=== PATIENT | female | born 1960 | race Caucasian/White ===

== ENCOUNTER 2019-11-09 14:04 | Outpatient (CLI) | payer OTHER, SELFPAY ==
--- NOTE | ~2019-11-09 | MM_ITS ---
EXAMINATION: MM screening aracely BI w josé HISTORY: Screening mammogram TECHNIQUE: Craniocaudal and mediolateral oblique 3-D tomosynthesis images were obtained and synthetic 2-D images were generated. CAD analysis was submitted and interpreted. COMPARISON: 08/09/2017, 08/16/2015, 09/27/2013 bilateral digital screening mammogram examinations BREAST PARENCHYMAL COMPOSITION: There are scattered areas of fibroglandular density. FINDINGS: Possible new 3 mm or smaller masses in the anterior lower outer quadrant of the left breast . Diagnostic left mammogram is recommended, with ultrasound if required. There is otherwise no evidence of suspicious mass, calcification, or architectural distortion to sugg est malignancy in either breast. There has been no suspicious interval change. IMPRESSION: 1. Possible new mass or masses in the anterior aspect of the lower outer left breast. 2. Diagnostic left mammogram is recommended, with ultrasound if required BI-RADS Category 0: Incomplete; need additional imaging evaluation Reviewed, dictated and finalized at location A. IMPRESSION: 1. Possible new mass or masses in the anterior aspect of the lower outer left b reast. 2. Diagnostic left mammogram is recommended, with ultrasound if required BI-RADS Category 0: Incomplete; need additional imaging evaluation
== END 2019-11-09 14:05 | disposition home or self-care (01) ==
PROVIDERS: PCP Internal Medicine; Visit Provider Obstetrics & Gynecology
DX: Z12.31 Encounter for screening mammogram for malignant neoplasm of breast (principal); R92.8 Other abnormal and inconclusive findings on diagnostic imaging of breast
CPT/HCPCS: 77063; 77067

== ENCOUNTER 2019-11-20 15:12 | Outpatient (CLI) | payer OTHER, SELFPAY ==
[2019-11-20 17:10] LABS: Basophils Absolute Auto 0.1 K/mm3 (0.0-0.1); Basophils Percent Auto 1.3 % (0.2-1.2); Eosinophils Absolute Auto 0.1 K/mm3 (0-0.3); Eosinophils Percent Auto 1.7 % (0-4.4); Hematocrit 41.2 % (37.0-47.0); Hemoglobin 13.4 g/dL (12.0-15.0); Immature Granulocyte Absolute 0.02 K/mm3 (0.00-0.031); Immature Granulocyte Percent A 0.3 % (0-0.5); Lymphocytes Absolute Auto 2.06 K/mm3 (0.9-3.2); Lymphocytes Percent Auto 28.9 % (18.3-44.2); Mean Corpuscular HGB Conc 32.5 g/dl (32-36); Mean Corpuscular Hemoglobin 30.3 pg (26-34); Mean Corpuscular Volume 93.2 fl (80-100); Mean Platelet Volume 11.2 fl (7.4-10.4); Monocytes Absolute Auto 0.5 K/mm3 (0.1-0.6); Monocytes Percent Auto 7.4 % (2.6-8.5); Neutrophils Absolute Auto 4.3 K/mm3 (1.3-6.7); Neutrophils Percent Auto 60.4 % (45.5-73.1); Platelet Count Result 246 k/mm3 (150-375); Red Blood Count 4.42 M/mm3 (4.2-5.4); Red Cell Distribution Width 12.4 % (11.5-14.5); White Blood Count 7.1 K/mm3 (4.5-10.0)
[2019-11-20 17:16] LABS: Alanine Aminotransferase 14 U/L (4-35); Albumin Level 4.4 g/dL (3.5-5.1); Alkaline Phosphatase 64 U/L (38-126); Anion Gap 7 mmol/L (8-16); Aspartate Amino Transferase 27 U/L (14-36); Bilirubin,Total 0.4 mg/dL (0.2-1.3); Blood Urea Nitrogen 15 mg/dL (7-17); Calcium 9.5 mg/dL (8.4-10.2); Carbon Dioxide 27 mmol/L (22-30); Chloride 103 mmol/L (98-107); Cholesterol 216 mg/dL (0-200); Estimated Glomerular Filt Rate > 60; Glucose 93 mg/dL (65-105); HDL Direct 67 mg/dL; Sodium 137 mmol/L (137-145); Triglycerides 127 mg/dL (<150)
[2019-11-20 17:27] LABS: LDL Cholesterol Direct 104 mg/dL
[2019-11-20 17:51] LABS: Hemoglobin A1C 5.1 % (<5.7)
== END 2019-11-20 15:13 | disposition home or self-care (01) ==
PROVIDERS: PCP Internal Medicine; Visit Provider Internal Medicine
DX: Z00.00 Encounter for general adult medical examination without abnormal findings (principal); D50.9 Iron deficiency anemia, unspecified; E78.5 Hyperlipidemia, unspecified
CPT/HCPCS: 36415; 80053; 80061; 83036; 84443; 85025

== ENCOUNTER 2019-11-24 00:16 | Outpatient (CLI) | payer OTHER, SELFPAY ==
[2019-11-24 18:35] LABS: SARS-CoV-2 RNA PCR Negative
== END 2019-11-24 00:17 | disposition home or self-care (01) ==
LOC: ANHCOVIDDT 00:16
PROVIDERS: PCP Internal Medicine; Visit Provider Internal Medicine Gastroenterology
DX: Z01.812 Encounter for preprocedural laboratory examination (principal); Z20.828 Contact with and (suspected) exposure to other viral communicable diseases
CPT/HCPCS: 87635; C9803; U0003

== ENCOUNTER 2019-11-27 01:27 | Day surgery (SDC) | payer OTHER, SELFPAY ==
[2019-11-16 14:01] VITALS: BMI 25.1
[2019-11-27 06:27] VITALS: BP 105/62; PULSE 63; RESP 16; TEMP 36.6; O2SAT 99; BMI 24.8
[2019-11-27] MEDS: LACTATED RINGERS 1,000 ML 150 ML IV CONT (06:34)
--- NOTE | 2019-11-27 06:37 | WPDANESEPPF ---
Anes - Initial Pre Proc Eval Procedure: Operation Date: 11/27/19 07:30 Proposed Procedures p Screening Colonoscopy - Kaden Ramon MD Date/Time: 11/27/19 06:37 Surgeon: Kaden Ramon MD Pre Op Diagnosis: Neoplasm Screening, Hx of Colon CA Patient Data Age: 58 Gender: F Height: 1.7 m Weight: 72 kg Last Vital Signs Temp 36.6 C 11/27/19 06:27 Pulse 63 11/27/19 06:27 Resp 16 11/27/19 06:27 BP 105/62 11/27/19 06:27 Pulse Ox 99 11/27/19 06:27 Allergies Allergy/AdvReac Type Severity Reaction Status Date / Time No Known Allergies Allergy Verified 11/27/19 06:26 Home Medications Medication Instructions Recorded Confirmed Type No Home Medications 11/16/19 11/16/19 History Patient hx anesthesia problems: none Family hx anesthesia problems: none PMFSH Past Medical History Medical History (Updated 11/27/19 @ 06:38 by David Benoit MD) Hx of colon cancer, stage I Mixed stress and urge urinary incontinence Pure hypercholesterolemia Family History Family History (Updated 11/08/15 @ 23:19 by DOCTOR UNKNOWN) Other Family history of diabetes mellitus in first degree relative Family history of malignant neoplasm of brain Family history of type 1 diabetes mellitus Hypertension Social History Social History Smoking status: Never smoker Alcohol intake: current Anes - Eval Final PreProcedure Day of Procedure 11/27/19 06:37 Patient weight: normal Heart: regular rate and rhythm Lungs: clear to auscultation and normal air movement Airway: Mallampati scale class II Neurological: alert and oriented Last oral intake: >/= 8 hours ASA classification: III Emergent: no Anesthetic plan: proceed Anesthesia type and monitoring: general GIVS Informed Consent: The patient's anesthetic plan and its attendant risks and benefits were discussed with the patient/family/POA. Questions were solicited and answers provided to the satisfaction of the patient/family/POA.
--- NOTE | 2019-11-27 07:55 | WPDGICN ---
Assessment and Plan Assessment and plan (1) Hx of colon cancer, stage I: Code(s): Z85.038 - Personal history of other malignant neoplasm of large intestine Status: Acute Assessment and Plan: Because of patient's prior history of colon cancer would recommend follow-up colonoscopy in 3-5 year intervals in the future. High-fiber diet is suggested. Family members are encouraged to seek evaluation as well. GI Consult Note Consult date/time: 11/27/19 07:55 HPI: Alma Delia Jain is a 58 year old female seen in evaluation at the request of Dr Eric Fraga.Patient has a history of colon cancer resected in felt to be cured. She presents today for follow-up examination. Her last colonoscopy was 3 years ago. Patient states her current weight appetite bowel movements are normal. She denies abdominal pain. She has had no blood in her stools. Family history is noncontributory. Review of Systems Review of Systems: All systems reviewed & are unremarkable except as noted in HPI and below PMFSH Past Medical History Medical History Hx of colon cancer, stage I Mixed stress and urge urinary incontinence Pure hypercholesterolemia Family History Family History Other Family history of diabetes mellitus in first degree relative Family history of malignant neoplasm of brain Family history of type 1 diabetes mellitus Hypertension Social History Social History Smoking status: Never smoker Alcohol intake: current Meds Home Medications and Allergies Home Medications Medication Instructions Recorded Confirmed Type No Home Medications 11/16/19 11/16/19 History Allergies Allergy/AdvReac Type Severity Reaction Status Date / Time No Known Allergies Allergy Verified 11/27/19 06:26 Vital Signs Vital Signs - 24 hr 11/27/19 06:27 Temperature 97.9 F Pulse Rate 63 Respiratory Rate 16 Blood Pressure 105/62 Pulse Oximetry 99 Exam Narrative: Exam Narrative: Physical exam reveals patient to be alert. Vital signs stable. HEENT exam unremarkable. Lungs are clear to auscultation and percussion. Heart is without murmur or extra sounds. Abdominal exam bowel sounds present soft nontender with no hepatosplenomegaly. Digital external rectal exam normal.
[2019-11-27 08:01] VITALS: BP 95/56; PULSE 67; RESP 24; O2SAT 98
[2019-11-27 08:11] VITALS: BP 94/43; PULSE 69; RESP 24; O2SAT 100
[2019-11-27 08:21] VITALS: BP 105/66; PULSE 54; RESP 14; O2SAT 100
== END 2019-11-27 08:45 | disposition home or self-care (01) ==
PROVIDERS: PCP Internal Medicine; Visit Provider Internal Medicine Gastroenterology
PROC: 0DJD8ZZ Inspection of Lower Intestinal Tract, Via Natural or Artificial Opening Endoscopic (ICD-10-PCS; CPT 45378; principal; 2019-11-27 07:30)
DX: Z08 Encounter for follow-up examination after completed treatment for malignant neoplasm (principal); Z85.038 Personal history of other malignant neoplasm of large intestine; Z98.0 Intestinal bypass and anastomosis status; E78.5 Hyperlipidemia, unspecified; I34.1 Nonrheumatic mitral (valve) prolapse
CPT/HCPCS: 45378; J2704; J7120

== ENCOUNTER 2019-12-04 10:24 | Outpatient (CLI) | payer OTHER, SELFPAY ==
--- NOTE | ~2019-12-04 | MMUS_ITS ---
EXAMINATION: MM diagnostic mammo unilat LT, US breast LT limited HISTORY: Possible left breast mass on screening mammogram TECHNIQUE: Additional 3-D tomosynthesis images of the left breast were performed and synthetic 2-D im ages were generated. CAD analysis was submitted and interpreted. High resolution limited left breast ultrasound was performed. COMPARISON: 10/13/2019, 08/09/2017, 08/16/2015 FINDINGS: MAMMOGRAPHIC FINDINGS: There is a return to baseline fibroglandular appearance in the left breast in the area of the questio nable breast mass on screening mammogram. No suspicious calcification or architectural distortion are identified. ULTRASOUND: There is no evidence of focal abnormal solid or cystic lesion in the vicinity of the mammographic fin ding in question. IMPRESSION: 1. No mammographic or sonographic evidence of malignancy. 2. Recommend routine screening mammography in one year. BI-RADS Category 1: Negative Reviewed, dictated and finalized at location A. IMPRESSION: 1. No mammographic or sonographic evidence of malignancy. 2. Recommend routine screening mammography in one year. BI-RADS Category 1: Negative
== END 2019-12-04 10:25 | disposition home or self-care (01) ==
LOC: ANHIMG 10:27
PROVIDERS: PCP Internal Medicine; Visit Provider Obstetrics & Gynecology
DX: R92.8 Other abnormal and inconclusive findings on diagnostic imaging of breast (principal)
CPT/HCPCS: 76642; 77065

== ENCOUNTER 2021-03-04 09:25 | Outpatient (CLI) | payer OTHER, SELFPAY ==
[2021-03-04 09:50] LABS: Basophils Absolute Auto 0.1 K/mm3 (0.0-0.1); Basophils Percent Auto 1.7 % (0.2-1.2); Eosinophils Absolute Auto 0.1 K/mm3 (0-0.3); Eosinophils Percent Auto 1.2 % (0-4.4); Hematocrit 43.7 % (37.0-47.0); Hemoglobin 14.4 g/dL (12.0-15.0); Immature Granulocyte Absolute 0.02 K/mm3 (0.00-0.031); Immature Granulocyte Percent A 0.3 % (0-0.5); Mean Corpuscular Hemoglobin 30.7 pg (26-34); Mean Corpuscular Volume 93.2 fl (80-100); Mean Platelet Volume 9.9 fl (7.4-10.4); Monocytes Absolute Auto 0.6 K/mm3 (0.1-0.6); Monocytes Percent Auto 7.2 % (2.6-8.5); Neutrophils Absolute Auto 4.9 K/mm3 (1.3-6.7); Neutrophils Percent Auto 64.6 % (45.5-73.1); Platelet Count Result 300 k/mm3 (150-375); Red Blood Count 4.69 M/mm3 (4.2-5.4); Red Cell Distribution Width 12.1 % (11.5-14.5); White Blood Count 7.6 K/mm3 (4.5-10.0)
[2021-03-04 11:07] LABS: Iron 99 ug/dL (37-170)
[2021-03-04 11:20] LABS: Percent Iron Saturation 31 % (20-50)
[2021-03-04 11:25] LABS: Alanine Aminotransferase 17 U/L (4-35); Albumin Level 4.6 g/dL (3.5-5.1); Alkaline Phosphatase 64 U/L (38-126); Anion Gap 8 mmol/L (8-16); Aspartate Amino Transferase 26 U/L (14-36); Bilirubin,Total 0.5 mg/dL (0.2-1.3); Blood Urea Nitrogen 16 mg/dL (7-17); Calcium 10.1 mg/dL (8.4-10.2); Carbon Dioxide 27 mmol/L (22-30); Chloride 103 mmol/L (98-107); Cholesterol 274 mg/dL (0-200); Estimated Glomerular Filt Rate > 60; Glucose 99 mg/dL (65-110); HDL Direct 74 mg/dL; Potassium 4.5 mmol/L (3.4-5.0); Sodium 138 mmol/L (137-145); Triglycerides 65 mg/dL (<150)
[2021-03-04 11:39] LABS: LDL Cholesterol Direct 154 mg/dL
[2021-03-04 12:52] LABS: Vitamin D 25 Hydroxy 35.8 ng/mL
== END 2021-03-04 09:26 | disposition home or self-care (01) ==
LOC: ANHLAB 09:28
PROVIDERS: PCP Internal Medicine; Visit Provider Nurse Practitioner
DX: E55.9 Vitamin D deficiency, unspecified (principal); D50.9 Iron deficiency anemia, unspecified; E78.00 Pure hypercholesterolemia, unspecified
CPT/HCPCS: 36415; 80053; 80061; 82306; 83540; 83550; 85025

== ENCOUNTER 2021-03-10 11:47 | Outpatient (CLI) | payer OTHER, SELFPAY ==
[2021-03-10 13:52] LABS: Hemoglobin A1C 5.3 % (<5.7)
[2021-03-10 15:40] LABS: Urine Cotinine NEGATIVE
== END 2021-03-10 11:48 | disposition home or self-care (01) ==
LOC: ANHSURGERY 11:51
PROVIDERS: PCP Internal Medicine; Visit Provider Orthopaedic Surgery
DX: Z01.818 Encounter for other preprocedural examination (principal); M16.11 Unilateral primary osteoarthritis, right hip
CPT/HCPCS: 80307; 83036; 87070

== ENCOUNTER 2021-03-26 02:09 | Day surgery (SDC) | payer OTHER, SELFPAY ==
[2021-03-10 12:01] VITALS: BP 117/73; PULSE 88; RESP 16; TEMP 36.6; O2SAT 97; BMI 25.9
--- NOTE | 2021-03-10 12:15 | PC.NURSE ---
Report to the Outpatient Waiting Room, entrance under the green pavilion located off [facility], at time __10:00AM on date 03/26/21 . OR Time: ____12:00PM____. - You and your visitor will be asked a series of questions to screen for COVID 19 for your protection. - A mask is required within the hospital. - Only one visitor is allowed at this time. Patient visitors will be guided where to wait when not with patient. Preoperative COVID Testing Requirements: No COVID Test needed if: (proof is required; if not received patient will have Rapid Test prior to entry) - Patient has received COVID Vaccine at least 14 days prior to procedure date or - Patient has positive COVID test result within last 90 days of surgery date. COVID Test needed if above criteria is not met If not COVID vaccinated a COVID test must be conducted within 72 hours of surgery and patient is asked to isolate self from time of testing until procedure. You will go to the [facility] for your COVID testing. The [facility] is located at the corner of [address] [facility]. You will only be called if COVID results are positive and your surgeon may reschedule your elective surgery date. Patients may have clear liquids (water, carbonated beverages, clear teas, apple juice) until 3 hours prior to surgery with a maximum of 20 ounces. - No food from midnight until time of surgery - Infants may have breast milk until 4 hours before surgery, infant formula 6 hours prior to surgery. - Children will be allowed to drink immediately following surgery. If applicable, please bring a bottle or sippy cup to assist with drinking. Juice, water, soda, and popsicles are readily available. For infants on formula, please bring formula the day of surgery. Pacifiers are allowed. Take the following medications with a SIP of water the morning of surgery: NONE Medications to discontinue per physician NONE Date to take last dose Please no make-up, nail armenian, hairspray, perfume, deodorant, or body powder the day of surgery. No jewelry (including any body piercings) or valuables the day of surgery, leave them at home. Please take a shower or bath the night before, or the morning of, surgery with an antibacterial soap. Wear comfortable, loose fitting clothing. Children are encouraged to wear pajamas. - Jewelry must be removed prior to entering the operating room. Rings and piercings that are not removed may be cut off. - The hospital will not accept responsibility for valuables. - Please leave all valuables, including medications, at home the day of surgery. If you are going home after surgery, a licensed auto transport driver must drive you home. - NO public transportation without another adult. - We recommend that an adult stay with you for 24 hours following discharge. - We also recommend that you do not drive, make important decision, drink alcoholic beverages, or take any drugs that were not prescribed by your health care provider for at least 24 hours after your discharge time. For Pediatric surgeries, we recommend two adults accompany the child home (only one inside the building at this time). Follow any additional instructions given to you from your surgeon. Telephone instructions given to __PATIENT and asked if any additional questions and then verbalized understanding. Patient advised to call surgeon office or pre surgery nurse liaison [phone] if any additional questions.
--- NOTE | 2021-03-24 12:51 | PM.IMHP ---
H&P: HPI History of Present Illness Date/Time: 03/24/21 12:51 60-year-old female patient of Dr Fraga who presents today for right anterior total hip arthroplasty. She has been having symptoms now about 2 years. Most the pain is in her groin. Bothers her she is up walking or doing most activities. It is limiting her lifestyle because pain. She has been taking [id number]-[id number] anti-inflammatories without improvement symptoms. Patient reached a point where the symptoms bothering her enough that she would like proceed with total hip arthroplasty rather continue nonsurgical treatment. Chief Complaint: Right hip DJD Review of Systems Review of Systems: All systems reviewed & are unremarkable except as noted in HPI and below PMFSH Past Medical History Medical History Hx of colon cancer, stage I Mixed stress and urge urinary incontinence Pure hypercholesterolemia Family History Family History Other Family history of diabetes mellitus in first degree relative Family history of malignant neoplasm of brain Family history of type 1 diabetes mellitus Hypertension Social History Social History Smoking status: Never smoker Alcohol intake: current Drinks per week: 1 Substance use: never Additional living arrangements comments: SPOUSE Spiritual care concerns: No Meds Home Medications and Allergies Home Medications Medication Instructions Recorded Confirmed Type No Home Medications 03/10/21 03/10/21 History Allergies Allergy/AdvReac Type Severity Reaction Status Date / Time No Known Allergies Allergy Verified 03/10/21 11:56 Exam Narrative: 60-year-old female alert pleasant. She is 5 ft 6 and 166 lb. She walks without obvious limp. Right hip range of motion is from 0-120 degrees. internal rotation is 0 external rotation at 10. She has anterior groin pain with rotation maneuvers. Anterior groin pain with Stinchfield maneuver. Normal abduction strength in lateral position. No tenderness over the greater trochanter. 2+ dorsalis pedis and posterior tibial artery pulse, normal sensation. Skin around the hip and groin crease are normal. She has no edema in either lower extremity. 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 She has been dealing with symptoms for over 2 years. At this point is affecting her daily life. She feels she would rather proceed with total hip arthroplasty rather continue nonsurgical treatment. Surgical procedure as well as the risks and complications were discussed all questions were answered we will proceed. She will avoid aspirin ibuprofen products 1 week prior to surgery. She will see her primary care doctor for pre-surgical clearance. Her nasal swab was negative. Hemoglobin 14.4 and platelets were 300. Chem panel was all within normal limits her creatinine is 0.80. We will plan to use Eliquis for DVT prophylaxis.
[2021-03-26] VITALS (10 sets, daily range): BP systolic 83–132; BP diastolic 30–65; PULSE 58–89; RESP 8–20; TEMP 35.9–36.6; O2SAT 96–100
--- NOTE | ~2021-03-26 | XR_ITS ---
EXAMINATION: XR surgery orthopedic EXAM DATE: 03/26/2021 15:23 INDICATION: Right hip replacement, anterior approach. TECHNIQUE: Fluoroscopy used during right hip arthroplasty performed by Dr. Ritesh Garcia MD. Rad iologist was not present for the imaging or procedure. Total fluoroscopic time of 56 seconds. The D AP for this procedure was 0.3 mGym2. A total of 4 images sent to PACS from the exam. FINDINGS: Right hip replacement hardware in expected position. Correlate with procedure note. IMPRESSION: Fluoroscopy used during right hip arthroplasty. Reviewed, dictated and finalized at location B. PPER APPRENTICE
--- NOTE | ~2021-03-26 | XR_ITS ---
EXAMINATION: XR hip RT 1V w AP pelvis EXAM DATE: 03/26/2021 15:39 INDICATION: Right hip arthroplasty anterior approach. TECHNIQUE: Portable frontal pelvis, crosstable lateral right hip projections right hip obtained imme diately following arthroplasty performed by orthopedic surgeon Ritesh Garcia MD. FINDINGS: Patient is status post right hip arthroplasty. The orthopedic hardware is in expected pos ition. There is small amount of subcutaneous gas, some soft tissue swelling. Surgical drain overlyin g site anterolaterally. Correlate with procedure note. IMPRESSION: Status post right hip arthroplasty. Reviewed, dictated and finalized at location B. AURANT AREA MANAGER
[2021-03-26] MEDS: TRANEXAMIC ACID 1,000MG/ISO100 1,000 MG/100 ML BAG 200 MG IVPB (10:35)
[2021-03-26] MEDS: LACTATED RINGERS 1,000 ML 30 ML IV CONT ×2 (10:35→15:39)
[2021-03-26] MEDS: ACETAMINOPHEN 500 MG TABLET 1000 MG PO (10:41)
--- NOTE | 2021-03-26 10:53 | WPDANESEPPF ---
Anes - Initial Pre Proc Eval Procedure: Operation Date: 03/26/21 12:00 Proposed Procedures p Right Total Hip Arthroplasty Anterior Approach - Ritesh Garcia MD Date/Time: 03/26/21 10:53 Surgeon: Ritesh Garcia MD Pre Op Diagnosis: right hip Oa Patient Data Age: 60 Gender: F Height: 1.7 m Weight: 75.3 kg Last Vital Signs Temp 36.6 C 03/26/21 10:19 Pulse 86 03/26/21 10:19 Resp 18 03/26/21 10:19 BP 120/42 L 03/26/21 10:19 Pulse Ox 99 03/26/21 10:19 Allergies Allergy/AdvReac Type Severity Reaction Status Date / Time No Known Allergies Allergy Verified 03/26/21 10:18 Home Medications Medication Instructions Recorded Confirmed Type No Home Medications 03/10/21 03/26/21 History Patient hx anesthesia problems: post op nausea/vomiting Family hx anesthesia problems: none Results Review: All pre-operative results and documents have been reviewed as part of the pre-operative evaluation. FOR[facility]LY [facility], [facility] Past Medical History Medical History Hx of colon cancer, stage I Mixed stress and urge urinary incontinence Pure hypercholesterolemia Family History Family History Other Family history of diabetes mellitus in first degree relative Family history of malignant neoplasm of brain Family history of type 1 diabetes mellitus Hypertension Social History Social History Smoking status: Never smoker Alcohol intake: current Drinks per week: 1 Substance use: never Living arrangements: with family Additional living arrangements comments: SPOUSE Spiritual care concerns: No Anes - Eval Final PreProcedure Day of Procedure 03/26/21 10:53 Patient weight: normal Heart: regular rate and rhythm Lungs: clear to auscultation Airway: Mallampati scale class II Neurological: alert and oriented Last oral intake: >/= 8 hours ASA classification: II Emergent: no Anesthetic plan: proceed Anesthesia type and monitoring: general ETT and standard monitoring Results Review: All pre-operative results and documents have been reviewed as part of the pre-operative evaluation. Informed Consent: The patient's anesthetic plan and its attendant risks and benefits were discussed with the patient/family/POA. Questions were solicited and answers provided to the satisfaction of the patient/family/POA.
[2021-03-26] MEDS: SCOPOLAMINE 1.5 MG PATCH TRANSDERM (11:17)
--- NOTE | 2021-03-26 11:55 | WPDHPUPDATE1 ---
History and Physical Update Update Date/Time: 03/26/21 11:55 History and Physical has been reviewed, including an updated exam of the patient. There are NO changes in the patient's condition. Risks, benefits, and alternatives have been discussed and questions answered. Patient agrees to proceed with procedure.
[2021-03-26] MEDS: ceFAZolin 2 GM/D5W 50 ML 2 GM/50 ML BAG IVPB (12:31)
[2021-03-26] MEDS: ceFAZolin SODIUM 1 GM VIAL 3 GM IRRIGATION (12:50)
[2021-03-26] MEDS: TRANEXAMIC ACID 1,000 MG/10 ML AMPUL 1000 MG IV PUSH (15:07)
[2021-03-26] MEDS: ceFAZolin SODIUM 1 GM VIAL IV PUSH (15:07)
--- NOTE | 2021-03-26 15:34 | W.PM.PROC2 ---
Procedure Note - Detailed Date of Procedure 03/26/21 Pre-op Diagnosis right hip Oa, moderate acetabular dysplasia Post-op Diagnosis same Procedure Performed Right total hip arthroplasty direct anterior approach Surgeon Ritesh Garcia MD Peeled Potato Inspector Shawna Anesthesia general Description of Procedure Patient brought to the operating room general anesthesia was administered. Her feet were covered with soft roll padded and placed in the boots and she was transferred to the OSI [place] table and the right hip prepped draped usual fashion. She received 2 g of Ancef weight based vancomycin 1 g of tranexamic acid preoperatively. A 10 cm longitudinal incision was made starting 3 cm lateral 2 cm distal to the ASIS. Dissection was carried down the fascia over the tensor fascia georgi which was longitudinally incised and elevated off the anterior 1/2 the TFL muscle the interval between TFL and rectus femoris developed. Crossing branches of AFib ascending lateral femoral circumflex vessels were ligated with suture divided. The anterior capsule was exposed the hip was abducted internally rotated and the interval between gluteus minimus and capsule developed. Standard capsulotomy was performed releasing the anterior capsule from the femur and the lateral capsule from the piriformis fossa area. Femoral neck osteotomy was made according to preoperative templating. Femoral head was removed and measured 45.5 mm in diameter. The acetabulum was exposed. There was osteophyte anteriorly. Labrum was excised and a small amount of the anterior superior acetabular osteophyte removed. Remaining articular cartilage was curetted. The femur was externally rotated and extended and the interval between conjoined tendon and piriformis incised which allowed the piriformis to flipped posteriorly and the conjoined tendon to recessed medially several mm. The leg back in the horizontal position external rotation and traction the acetabulum was exposed. We medialized with a 44 Reamer and reamed up to 45 than 47 mm. The 47 mm Reamer reached the periphery both anteriorly and posteriorly at the equator of the acetabulum. This did not quite reach the periphery of the anterior superior acetabulum where there was some bone wear and eburnation. We carefully lightly reamed with a 48 Reamer and impacted a 48 trial which obtained good fit. This left the acetabular shell about 5 or 6 mm proud posterior superiorly and was 1 or 2 mm proud posteriorly and just under the anterior rim anteriorly. We chose the 48 mm pinnacle cup which was fully seated. Her bone was very solid and dense and therefore we did achieve an excellent Press-Fit even with a line to line reaming. A single screw was placed up in the ilium which also obtained excellent purchase. The 32 inner diameter acetabular liner was placed without difficulty in fully seated. With the femur externally rotated and extended we broached up to a size 3 which was our preoperative plan. This seemed to give appropriate torsional stability but was easy to insert to this level and we trialed. With the high offset +1 head this gave us equal leg lengths and offset seemed appropriate. There was ample shock and stability and I thought that the hip just seemed a tiny bit looser than normal with the shock. Looking at the fluoroscopic view it looked like we could go up 1 more size on the femur. We approach this and with the concise impactor the 3 broach was able to be countersunk quite easily. This was removed and we broached to a size 4 which came to rest at the level of the calcar plane neck cut and had very Earnestine solid axial stability and excellent torsional stability. On trialing because of the slight 2 mm increase offset 1 mm increased length going from the size 3-4, this gave a very nice soft tissue tension which I felt was perfect. The 4 broach was removed with a little bit of difficulty as it was snug and we placed the size 4 Actis high offset stem which s
[2021-03-26] MEDS: SODIUM CHLORIDE 0.9% IV 1,000 ML 125 ML IV CONT (17:36)
--- NOTE | 2021-03-26 17:54 | ADMGEN ---
This patient, Alma Delia Jain, was admitted to [facility]. Patient/family oriented to hospital policies and general routines including ID bracelet, bed and alarms, visiting hours, pain management, procedures, bathroom and other care routines, personal items, smoking policy, room service/diet, and visiting hours. Information on how to activate the Rapid Response Team has been discussed. Patient/Family are encouraged to report perceived risks to care and to ask questions if they do not understand what they are told or what they should do.
[2021-03-26] MEDS: FAMOTIDINE 20 MG TABLET PO (20:30)
[2021-03-27 03:00] VITALS: BP 108/55; PULSE 96; RESP 20; TEMP 37.8; O2SAT 97
[2021-03-27] MEDS: ACETAMINOPHEN 500 MG TABLET 1000 MG PO ×2 (03:17→08:17)
[2021-03-27] MEDS: ONDANSETRON INJ 4 MG/2 ML VIAL IV PUSH (05:15)
--- NOTE | 2021-03-27 07:10 | PM.PNORT ---
Subjective Subjective Date/Time Seen: 03/27/21 07:10 Postop day 1 patient is doing very well. She was up walking last to the restroom multiple times. Her pain is well controlled. She is trying to avoid narcotics. She is having minimal discomfort. Neurovascularly she is intact. Morning labs and not been completed yet. We will get her drain out this morning. We will plan to have patient work with physical therapy this morning if she continues to do well plan on discharging her home after that. Objective Data Vital Signs Vital Signs: Vital Signs - 24 hr 03/26/21 10:19 03/26/21 15:50 03/26/21 16:04 Temperature 36.6 C 36.6 C Pulse Rate 86 65 63 Respiratory Rate 18 10 L 9 L Blood Pressure 120/42 L 83/33 L 89/40 L Pulse Oximetry 99 97 100 03/26/21 16:15 03/26/21 16:30 03/26/21 16:46 Temperature Pulse Rate 61 79 64 Respiratory Rate 11 L 8 L 13 Blood Pressure 97/56 L 132/30 L 102/54 L Pulse Oximetry 100 98 96 03/26/21 16:49 03/26/21 17:04 03/26/21 18:34 Temperature 35.9 C L 36.1 C L 36.1 C L Pulse Rate 83 75 89 Respiratory Rate 16 14 14 Blood Pressure 109/44 L 110/50 L 118/45 L Pulse Oximetry 100 98 98 03/26/21 20:00 03/27/21 03:00 Temperature 37.8 C H Pulse Rate 58 L 96 Respiratory Rate 20 20 Blood Pressure 120/65 108/55 L Pulse Oximetry 96 97 Intake/Output Intake/Output: Intake & Output 03/24/21 03/25/21 03/26/21 03/27/21 23:59 23:59 23:59 23:59 Intake Total 1300 50 Output Total 50 40 Balance 1250 10 Meds/Results Medications: Active Medications Generic Name Dose Route Start Last Admin Trade Name Freq PRN Reason Stop Dose Admin Acetaminophen 1,000 mg 03/26/21 18:00 03/27/21 03:17 Acetaminophen 500 Mg Tablet PO 1,000 mg Q6HR LETICIA Administration Al Hydrox/Mg Hydrox/Simethicone 30 ml 03/26/21 16:49 Mag Hydrox/Al Hydrox/Simeth 30 Ml Udc PO Q6H PRN Indigestion Apixaban 2.5 mg 03/27/21 09:00 Apixaban 2.5 Mg Tablet PO Q12HR LETICIA Celecoxib 200 mg 03/27/21 09:00 Celecoxib 200 Mg Capsule PO DAILY LETICIA Famotidine 20 mg 03/26/21 21:00 03/26/21 20:30 Famotidine 20 Mg Tablet PO 20 mg Q12HR LETICIA Administration Hydroxyzine HCl 50 mg 03/26/21 16:49 Hydroxyzine Hcl 25 Mg Tablet PO Q4H PRN Itching Vancomycin HCl 1,000 mg in 250 mls @ 250 mls/hr 03/26/21 20:00 03/26/21 21:45 Vancomycin 1,000 Mg/D5w 250 Ml IVPB 03/27/21 08:59 Infused Q12H LETICIA Infusion Cefazolin Sodium 1 gm in 50 mls @ 100 mls/hr 03/26/21 20:30 03/27/21 05:12 Ancef 1 Gm/D5w 50 Ml Pm IVPB 03/27/21 12:59 Infused Q8H [facility] Infusion Sodium Chloride 1,000 mls @ 125 mls/hr 03/26/21 16:49 03/26/21 19:08 Normal Saline Iv IV CONT Infused .Q8H LETICIA Infusion Morphine Sulfate 2 mg 03/26/21 16:49 Morphine Sulfate (*Crx) 2 Mg/Ml Inj IV PUSH Q3H PRN Pain Rated 7-10 Naloxone HCl 0.1 mg 03/26/21 16:49 Naloxone Hcl 0.4 Mg/Ml Vial IV PUSH Q2M PRN Opiate Reversal Ondansetron HCl 4 mg 03/26/21 16:49 03/27/21 05:15 Ondansetron Inj 4 Mg/2 Ml Vial IV PUSH 4 mg Q4H PRN Administration Nausea And Vomiting Oxycodone HCl 5 mg 03/26/21 16:49 Oxycodone Hcl (*Crx) 5 Mg Tab Ir PO Q4H PRN Pain Rated 4-6 Oxycodone HCl 5 mg 03/26/21 16:49 03/26/21 17:10 Oxycodone Hcl (*Crx) 5 Mg Tab Ir PO Not Given Q4H [facility] Polyethylene Glycol 17 gm 03/27/21 09:00 Polyethylene Glycol 3350 17 Gm Powd.Pack PO QAM [facility] Senna/Docusate Sodium 2 tab 03/26/21 17:00 03/26/21 17:36 Senna/Docusate Sodium Tablet PO Not Given BID [facility] Radiology Results: ITS Impressions Intraoperative X-Ray 03/26/21 15:36 IMPRESSION: Fluoroscopy used during right hip arthroplasty. Hip/Pelvis X-Ray 03/26/21 15:40 IMPRESSION: Status post right hip arthroplasty. Labs Labs: Laboratory Results - last 24 hr 03/26/21 10:35 Blood Type A Positive Antibody Screen Negati
--- NOTE | 2021-03-27 07:15 | P.DS_ITS ---
DS: Admitting Diagnosis Discharge Date 03/27 Admitting Diagnosis Right hip DJD DS: Summary Hospital Course Hospital Course: Stable Time Spent with Patient Time attestation: Total time spent providing and/or coordinating discharge services: 60-year-old female underwent right anterior total arthroplasty on 03/26. Underwent procedure without any complications. Postoperatively she has been afebrile loss and was stable. She is up walking the day of surgery and comfortable. Pain overall is very well controlled. She is trying to minimize narcotic use. She is taking Tylenol regularly. She is also on Celebrex 200 mg once a day for the 1st 10 days. She has been given oxycodone 5 mg to use as her pain dictates. She is on Eliquis for DVT prophylaxis. She is weight-bearing as tolerated. At the time of dictation morning labs on postop day 1 was not completed yet. patient will also go home on MiraLax and Senokot. Overall patient has done very well. She was advise any questions or concerns to call the office otherwise we will see her at her appointment date. DS: Data Data Completed and Pending Labs on day of discharge: Labs from last 24 hours 03/26/21 10:35 Blood Type A Positive Antibody Screen Negative Discharge Plan Discharge Patient Disposition: Home, Self-Care Activity: may shower Diet: as tolerated Wound Care Instructions: follow printed instructions Discharge Instructions: RITESH GARCIA M.D [facility] [address] [place] [id number] POST-OPERATIVE DISCHARGE INSTRUCTIONS ANTERIOR TOTAL HIP ARTHROPLASTY 1. Move toes/feet up and down every hour while awake. 2. Be up walking every hour while awake. 3. Use cane in hand opposite of side of hip surgery or walker as comfort allows. Avoid sitting in a chair unless eating, receiving visitors or using the toilet. 4. When resting, lie on back with leg elevated above heart to minimize swelling. Significant swelling could indicate a blood clot and if this occurs, call the office (or go to the ER) to have a venous ultrasound performed. 5. Wound Care: Keep dry sponge on wound for 2 weeks. Use minimal tape. . 6. May shower with dressing off. Stand Alone Forms: General Discharge Instructions Follow-up/Referrals: Ritesh Garcia MD [Physician] - Keep Reg. Scheduled Appt. Discharge Medications: New acetaminophen 500 mg Tablet 1,000 mg PO Q6HR Qty: 90 RF: 0 Eliquis 2.5 mg Tablet 2.5 mg PO Q12HR Qty: 69 RF: 0 celecoxib [Celebrex] 200 mg Capsule 200 mg PO DAILY Qty: 10 RF: 0 sennosides-docusate sodium [Senokot-S] 8.6-50 mg Tablet 2 tab-cap PO BID Qty: 60 RF: 0 polyethylene glycol 3350 [Miralax] 17 gram Powder In Packet 17 g PO QAM Qty: 30 RF: 0 oxycodone 5 mg Tablet 5 mg PO Q4H PRN (Reason: Pain Rated 4-6) Qty: 30 RF: 0 Attending physician on admission: Ritesh Garcia
[2021-03-27 07:39] LABS: Basophils Absolute Auto 0.1 K/mm3 (0.0-0.1); Basophils Percent Auto 0.7 % (0.2-1.2); Eosinophils Percent Auto 0.1 % (0-4.4); Hematocrit 36.8 % (37.0-47.0); Hemoglobin 11.9 g/dL (12.0-15.0); Immature Granulocyte Percent A 0.7 % (0-0.5); Lymphocytes Absolute Auto 1.05 K/mm3 (0.9-3.2); Lymphocytes Percent Auto 7.8 % (18.3-44.2); Mean Corpuscular HGB Conc 32.3 g/dl (32-36); Mean Corpuscular Volume 92.7 fl (80-100); Mean Platelet Volume 10.3 fl (7.4-10.4); Monocytes Percent Auto 7.8 % (2.6-8.5); Neutrophils Absolute Auto 11.1 K/mm3 (1.3-6.7); Neutrophils Percent Auto 82.9 % (45.5-73.1); Platelet Count Result 230 k/mm3 (150-375); Red Blood Count 3.97 M/mm3 (4.2-5.4); Red Cell Distribution Width 12.3 % (11.5-14.5); White Blood Count 13.4 K/mm3 (4.5-10.0)
[2021-03-27 07:45] LABS: Anion Gap 11 mmol/L (8-16); Blood Urea Nitrogen 12 mg/dL (7-17); Calcium 8.6 mg/dL (8.4-10.2); Carbon Dioxide 24 mmol/L (22-30); Chloride 99 mmol/L (98-107); Estimated CRCL calculation 73 ml/min; Estimated Glomerular Filt Rate > 60; Glucose 183 mg/dL (65-110); Potassium 4.1 mmol/L (3.4-5.0); Sodium 134 mmol/L (137-145)
[2021-03-27] MEDS: CELECOXIB 200 MG CAPSULE PO (09:29)
[2021-03-27] MEDS: APIXABAN 2.5 MG TABLET PO (09:29)
[2021-03-27] MEDS: FAMOTIDINE 20 MG TABLET PO (09:29)
--- NOTE | 2021-03-27 10:06 | WPDANESPN ---
Anes - Prog Note Post-Op Date/Time: 03/27/21 10:06 Cardiovascular status: normal Respiratory status: normal Airway patency: baseline Mental status: baseline Post-Op hydration status: normal Vital Signs: Last Vital Signs Temp 37.8 C H 03/27/21 03:00 Pulse 96 03/27/21 03:00 Resp 20 03/27/21 03:00 BP 108/55 L 03/27/21 03:00 Pulse Ox 97 03/27/21 03:00 Pain Score (VAS): 0 I/O: Intake & Output 03/26/21 03/27/21 03/27/21 23:59 07:59 15:59 Intake Total 1000 50 Output Total 50 40 Balance 950 10 Laboratory Tests 03/27/21 07:09 03/27/21 07:09 03/26/21 03/27/21 03/27/21 10:35 07:09 07:09 WBC 13.4 H RBC 3.97 L Hgb 11.9 L Hct 36.8 L MCV 92.7 MCH 30.0 MCHC 32.3 RDW 12.3 Plt Count 230 MPV 10.3 Immature Gran % (Auto) 0.7 H Neut % (Auto) 82.9 H Lymph % (Auto) 7.8 L Gaines % (Auto) 7.8 Eos % (Auto) 0.1 Baso % (Auto) 0.7 Lymph # (Auto) 1.05 Gaines # (Auto) 1.0 H Eos # (Auto) 0.0 Baso # (Auto) 0.1 Abs Immat Gran (auto) 0.10 H Absolute Neuts (auto) 11.1 H Absolute Nucleated RBC 0.0 Nucleated RBC % 0.0 Sodium 134 L Potassium 4.1 Chloride 99 Carbon Dioxide 24 Anion Gap 11 BUN 12 Creatinine 0.70 Estim Creat Clear Calc 73 Estimated GFR > 60 Glucose 183 H Calcium 8.6 Blood Type A Positive Antibody Screen Negative Post-procedural complaints: none Patient Feedback: Patient satisfied with anesthetic care.
== END 2021-03-27 10:20 | disposition home or self-care (01) ==
LOC: ANHSURGERY 10:00 → ANHSUROVER 16:51
PROVIDERS: Physician Assistant Surgical; PCP Internal Medicine; Visit Provider Orthopaedic Surgery
PROC: (CPT 27130; principal; 2021-03-26 12:00)
DX: M16.11 Unilateral primary osteoarthritis, right hip (principal); Q65.89 Other specified congenital deformities of hip; E78.00 Pure hypercholesterolemia, unspecified; N39.46 Mixed incontinence; Z85.038 Personal history of other malignant neoplasm of large intestine
CPT/HCPCS: 27130; 36415; 73501; 80048; 85025; 86850; 86900; 86901; 97110; 97161; 97165; A9270; C1776; J0171; J0690; J1100; J1170; J2250; J2270; J2370; J2405; J2704; J2710; J2795; J3010; J3370; J7030; J7120

== ENCOUNTER 2021-03-29 17:25 | Emergency (ER) | payer OTHER, SELFPAY ==
[2021-03-29] VITALS (21 sets, daily range): BP systolic 101–138; BP diastolic 49–113; PULSE 82–115; RESP 13–22; TEMP 36.7; O2SAT 96–100
--- NOTE | ~2021-03-29 | XR_ITS ---
XR chest 1V portable 03/29/2021 21:19 Indication: Recent hip replacement. Nausea and lethargy. Procedure: AP portable chest Comparison: No prior studies for comparison. Findings: Heart size normal. There is bibasilar atelectasis. No edema, pleural effusion or pneumothor ax. No acute osseous abnormality. Impression: 1: Bibasilar atelectasis. Reviewed, dictated and finalized at location A. ER HEAD WET PROCESS Impression: 1: Bibasilar atelectasis.
--- NOTE | 2021-03-29 21:02 | PC.NURSE ---
pt ambulatory with walker c/o bp low and hr high since right total hip surgery 2 days ago. no current complaints. ambulatory without difficulty. placed on monitor.
--- NOTE | 2021-03-29 21:10 | ECG_ITS ---
Measurements Intervals [place] Rate: 87 P: 55 AR: 182 QRS: 43 QRSD: 77 T: 30 QT: 369 QTc: 444 Interpretive Statements SINUS RHYTHM BASELINE ARTIFACT- III NORMAL ECG Electronically Signed On 03-30-2021 7:55:09 DIRECTOR OF FIRST IMPRESSIONS by Humberto Mckeon D.O.
[2021-03-29] MEDS: SODIUM CHLORIDE 0.9% IV 1,000 ML 999 ML IV CONT (21:30)
[2021-03-29 21:43] LABS: Basophils Absolute Auto 0.1 K/mm3 (0.0-0.1); Eosinophils Absolute Auto 0.3 K/mm3 (0-0.3); Eosinophils Percent Auto 3.7 % (0-4.4); Hematocrit 31.9 % (37.0-47.0); Hemoglobin 10.3 g/dL (12.0-15.0); Immature Granulocyte Absolute 0.03 K/mm3 (0.00-0.031); Immature Granulocyte Percent A 0.4 % (0-0.5); Lymphocytes Absolute Auto 1.76 K/mm3 (0.9-3.2); Lymphocytes Percent Auto 21.6 % (18.3-44.2); Mean Corpuscular HGB Conc 32.3 g/dl (32-36); Mean Corpuscular Hemoglobin 30.2 pg (26-34); Mean Corpuscular Volume 93.5 fl (80-100); Mean Platelet Volume 10.2 fl (7.4-10.4); Monocytes Absolute Auto 0.8 K/mm3 (0.1-0.6); Monocytes Percent Auto 9.6 % (2.6-8.5); Neutrophils Absolute Auto 5.2 K/mm3 (1.3-6.7); Neutrophils Percent Auto 63.7 % (45.5-73.1); Platelet Count Result 231 k/mm3 (150-375); Red Blood Count 3.41 M/mm3 (4.2-5.4); Red Cell Distribution Width 12.8 % (11.5-14.5); White Blood Count 8.1 K/mm3 (4.5-10.0)
[2021-03-29] MEDS: ONDANSETRON INJ 4 MG/2 ML VIAL IV PUSH (21:49)
[2021-03-29 21:53] LABS: Alanine Aminotransferase 16 U/L (4-35); Albumin Level 3.8 g/dL (3.5-5.1); Alkaline Phosphatase 72 U/L (38-126); Anion Gap 5 mmol/L (8-16); Aspartate Amino Transferase 33 U/L (14-36); Bilirubin,Total 0.4 mg/dL (0.2-1.3); Blood Urea Nitrogen 16 mg/dL (7-17); Calcium 9.2 mg/dL (8.4-10.2); Carbon Dioxide 27 mmol/L (22-30); Chloride 101 mmol/L (98-107); Estimated CRCL calculation 70 ml/min; Estimated Glomerular Filt Rate > 60; Glucose 114 mg/dL (65-110); Lactic Acid Reflex 0.7 mmol/L (0.7-2.1); Magnesium 2.1 mg/dL (1.6-2.3); Sodium 133 mmol/L (137-145)
[2021-03-29 23:11] LABS: Add Urine Microscopic? YES; Appearance Urine Clear (Clear); Bilirubin Urine Negative (Negative); Blood Urine 1+ (Negative); Color Urine Yellow (Yellow); Glucose Urine UA Negative (Negative); Ketones Urine Trace mg/dL (Negative); Leukocyte Esterase Ur Negative LEU/UL (Negative); Mucus Urine Rare /lpf; Nitrate Urine Negative (Negative); Protein Urine Negative (Negative); RBC Urine 0-2 /hpf (0-2); Specific Grav Ur 1.011 (1.001-1.035); Squamous Epithelial Cell Urine Rare /hpf (Few); Urobilinogen Urine Negative mg/dL (<2.0)
--- NOTE | 2021-03-29 23:40 | ED.GENADULT ---
HPI - General Adult General Chief complaint: Recheck/Abnormal Lab/Rx Stated complaint: post op problems, dizzy Time Seen by Provider: 03/29/21 20:49 History of Present Illness HPI narrative: Patient 60-year-old female presents emerged from with chief complaint of low blood pressure and fast heart rate. The patient reports she just had a hip replacement done on the right side by orthopedics the patient states that she has been on Eliquis and also on Celebrex. The patient states that she has had no black stool no bloody stool denies shortness of breath reports that she has noticed that she felt a little lightheaded and noticed that her blood pressure was running lower than where it normally does and at times her heart rate would be in the 1 teens. Patient denies chest pain denies shortness of breath. Patient reports that the wound looks good has had no redness or drainage Related Data Allergies Allergy/AdvReac Type Severity Reaction Status Date / Time scopolamine AdvReac Unknown Hives Verified 03/29/21 21:01 Review of Systems Review of Systems: A 10 system review of systems was completed on the patient and is negative except for what is stated in the HPI. Nursing and ancillary documentation was reviewed. [facility] Past Medical History Medical History (Updated 03/29/21 @ 23:47 by Raymond Sarkar MD) Hx of colon cancer, stage I Mixed stress and urge urinary incontinence Pure hypercholesterolemia Family History Family History Other Family history of diabetes mellitus in first degree relative Family history of malignant neoplasm of brain Family history of type 1 diabetes mellitus Hypertension Social History Social History Smoking status: Never smoker Alcohol intake: current Drinks per week: 1 Substance use: never Additional living arrangements comments: SPOUSE Spiritual care concerns: No Exam Narrative: GENERAL: Well-appearing, well-nourished, and in no acute distress. HEAD: Normocephalic, atraumatic. EYES: PERRLA and EOMI. ENT: Nares clear, no rhinorrhea or epistaxis. Mucous membranes moist. NECK: Supple. CHEST: Clear to auscultation. No respiratory distress. HEART: Regular rate and rhythm. No murmur heard. Normal peripheral pulses. ABDOMEN: Soft, nontender, nondistended, normal active bowel sounds. EXTREMITIES: Normal range of motion. No edema. There is a incision on the right hip area that is healing nicely no redness no swelling no drainage SKIN: Warm, dry, no rash. NEURO: No focal deficits. Alert and oriented x3. PSYCH: Normal mood and affect. Course Course Emergency Course: EKG is sinus rhythm rate of [address] elevation or ST depression Vital Signs Vital signs: Vital Signs Temperature 36.7 C 03/29/21 17:30 Pulse Rate 115 H 03/29/21 17:30 Respiratory Rate 18 03/29/21 17:30 Blood Pressure 119/52 L 03/29/21 17:30 Pulse Oximetry 98 03/29/21 17:30 Temperature 36.7 C 03/29/21 17:30 Pulse Rate 100 03/29/21 23:13 Respiratory Rate 13 03/29/21 22:21 Blood Pressure 119/56 L 03/29/21 23:13 Pulse Oximetry 99 03/29/21 22:57 Medical Decision Making Vital Signs Vital Signs: Vital Signs Temperature 36.7 C 03/29/21 17:30 Pulse Rate 115 H 03/29/21 17:30 Respiratory Rate 18 03/29/21 17:30 Blood Pressure 119/52 L 03/29/21 17:30 Pulse Oximetry 98 03/29/21 17:30 Temperature 36.7 C 03/29/21 17:30 Pulse Rate 100 03/29/21 23:13 Respiratory Rate 13 03/29/21 22:21 Blood Pressure 119/56 L 03/29/21 23:13 Pulse Oximetry 99 03/29/21 22:57 Lab Data Result diagrams: 03/29/21 21:36 03/29/21 21:36 Labs: Lab Results 03/29/21 03/29/21 03/29/21 Range/Units 21:36 21:36 21:36 WBC 8.1 (4.5-10.0) K/mm3 RBC 3.41 L (4.2-5.4) M/mm3 Hgb 10.3 L (12.0-15.0) g/dL Hct
== END 2021-03-30 00:14 | disposition home or self-care (01) ==
PROVIDERS: Emergency Provider Emergency Medicine; PCP Internal Medicine
DX: R53.1 Weakness (principal); Z79.01 Long term (current) use of anticoagulants; Z85.038 Personal history of other malignant neoplasm of large intestine
CPT/HCPCS: 36415; 71045; 80053; 81001; 83605; 83735; 85025; 93005; 96361; 96374; 99284; J2405; J7030

== ENCOUNTER 2022-07-06 00:20 | Day surgery (SDC) | payer OTHER, SELFPAY ==
[2022-06-23 16:30] VITALS: BMI 27.4
[2022-07-06 08:04] VITALS: BP 114/53; PULSE 72; RESP 18; TEMP 36.3; O2SAT 97
[2022-07-06] MEDS: LACTATED RINGERS 1,000 ML 150 ML IV CONT (08:21)
--- NOTE | 2022-07-06 08:47 | PM.HPGS ---
History of Present Illness History of Present Illness Consent: Risks, benefits, and alternatives have been discussed and questions answered. Patient agrees to proceed with procedure. Chief complaint: hx of malignant neoplasm large intestine Narrative: Alma Delia Jain is a 61 year old female Presents for screening colonoscopy. Patient's current weight appetite and bowel movements are normal. Patient denies abdominal pain. She has had no bleeding. Family history noncontributory. Patient has a history of carcinoma of the colon identified resected in 2016. Patient's previous colonoscopy 3 years ago was unremarkable. Patient presents today for screening colonoscopy. Review of Systems Review of Systems: Review of systems noncontributory. [facility] Past Medical History Medical History Hx of colon cancer, stage I Mixed stress and urge urinary incontinence Pure hypercholesterolemia Surgical History Surgical History History of total hip replacement Hx of cholecystectomy Family History Family History Other Family history of diabetes mellitus in first degree relative Family history of malignant neoplasm of brain Family history of type 1 diabetes mellitus Hypertension Social History Social History Smoking status: Never smoker Alcohol intake: current Drinks per week: 1 Substance use: never Substance use type: does not use Lack of Transportation: No Lack of Food: Never True Current Housing: I Have Housing Concerned About Future Housing: No Difficulty Paying Gas/Electric Bills: No Difficulty Paying for Meds: No Currently Unemployed: No Education: Master's Degree or Higher Difficulty w/ Childcare or Family Care: No Living arrangements: with family Additional living arrangements comments: SPOUSE Spiritual care concerns: No Meds Home Medications and Allergies Home Medications Medication Instructions Recorded Confirmed Type No Home Medications 07/06/22 07/06/22 History Allergies Allergy/AdvReac Type Severity Reaction Status Date / Time No Known Allergies Allergy Verified 07/06/22 08:03 Vital Signs Vital Signs - 24 hr 07/06/22 08:04 Temperature 97.4 F L Pulse Rate 72 Respiratory Rate 18 Blood Pressure 114/53 L Pulse Oximetry 97 Oxygen Delivery Room Air Exam Narrative: Physical exam reveals patient to be alert. Vital signs stable. HEENT exam is unremarkable. Patient is anicteric. Lungs are clear to auscultation and percussion. Heart is without murmur or extra sounds. Abdomen bowel sounds present soft nontender with no organomegaly. Digital external rectal exam is normal. Assessment and Plan Assessment and plan (1) Hx of colon cancer, stage I: Code(s): Z85.038 - Personal history of other malignant neoplasm of large intestine Status: Acute Assessment and Plan: Patient has a history of colon cancer resected in identified 2015. Patient presents today for surveillance colonoscopy. Her current weight appetite bowel movements normal. Further recommendations will be given after endoscopy. Anticipate follow-up every 3 years.
--- NOTE | 2022-07-06 08:58 | P.PNAN_ITS ---
Anes - Initial Pre Proc Eval Procedure: Operation Date: 07/06/22 09:30 Proposed Procedures p Colonoscopy - Kaden Ramon MD Date/Time: 07/06/22 08:58 Surgeon: Kaden Ramon MD Pre Op Diagnosis: hx of malignant neoplasm large intestine Patient Data Age: 61 Gender: F Height: 1.7 m Weight: 76.5 kg Last Vital Signs Temp 36.3 C L 07/06/22 08:04 Pulse 72 07/06/22 08:04 Resp 18 07/06/22 08:04 BP 114/53 L 07/06/22 08:04 Pulse Ox 97 07/06/22 08:04 O2 Del Method Room Air 07/06/22 08:04 Allergies Allergy/AdvReac Type Severity Reaction Status Date / Time No Known Allergies Allergy Verified 07/06/22 08:03 Home Medications Medication Instructions Recorded Confirmed Type No Home Medications 07/06/22 07/06/22 History Patient hx anesthesia problems: none Family hx anesthesia problems: none Results Review: All pre-operative results and documents have been reviewed as part of the pre- operative evaluation. [facility] Past Medical History Medical History Hx of colon cancer, stage I Mixed stress and urge urinary incontinence Pure hypercholesterolemia Surgical History Surgical History History of total hip replacement Hx of cholecystectomy Family History Family History Other Family history of diabetes mellitus in first degree relative Family history of malignant neoplasm of brain Family history of type 1 diabetes mellitus Hypertension Social History Social History Smoking status: Never smoker Alcohol intake: current Drinks per week: 1 Substance use: never Substance use type: does not use Lack of Transportation: No Lack of Food: Never True Current Housing: I Have Housing Concerned About Future Housing: No Difficulty Paying Gas/Electric Bills: No Difficulty Paying for Meds: No Currently Unemployed: No Education: Master's Degree or Higher Difficulty w/ Childcare or Family Care: No Living arrangements: with family Additional living arrangements comments: SPOUSE Spiritual care concerns: No Anes - Eval Final PreProcedure Day of Procedure 07/06/22 08:58 Patient weight: normal Heart: regular rate and rhythm Lungs: clear to auscultation Airway: Mallampati scale class II Neurological: alert and oriented Last oral intake: >/= 8 hours ASA classification: III Emergent: no Anesthetic plan: proceed Anesthesia type and monitoring: general GIVS and standard monitoring Results Review: All pre-operative results and documents have been reviewed as part of the pre- operative evaluation. Informed Consent: The patient's anesthetic plan and its attendant risks and benefits were discussed with the patient/family/POA. Questions were solicited and answers provided to the satisfaction of the patient/family/POA.
[2022-07-06 09:47] VITALS: BP 112/86; PULSE 72; RESP 18; O2SAT 97
[2022-07-06 09:57] VITALS: BP 98/47; PULSE 71; RESP 17; O2SAT 97
[2022-07-06 10:07] VITALS: BP 109/62; PULSE 70; RESP 18; O2SAT 100
== END 2022-07-06 10:11 | disposition home or self-care (01) ==
PROVIDERS: PCP Family Medicine; Visit Provider Internal Medicine Gastroenterology
PROC: 0DJD8ZZ Inspection of Lower Intestinal Tract, Via Natural or Artificial Opening Endoscopic (ICD-10-PCS; CPT 45378; principal; 2022-07-06 09:30)
DX: Z12.11 Encounter for screening for malignant neoplasm of colon (principal); Z85.038 Personal history of other malignant neoplasm of large intestine
CPT/HCPCS: 45378; J2704; J7120

== ENCOUNTER 2022-07-16 08:12 | Outpatient (CLI) | payer OTHER, SELFPAY ==
--- NOTE | 2022-07-27 17:38 | WPDHOMESLEEP ---
Sleep Study - Home Unattended Date of Study: 07/16/22 Ordering Provider: Coral Potter DO Interpreting Provider: Coral Potter DO Home Sleep Study Type: Watch PAT Height: 1.7 m Weight: 77.111 kg Body Mass Index: 26.6 Neck Circumference (inches): 12.25 [place]: 17 Reason for Sleep Study Witnessed apneas, daytime hypersomnia Sleep History The patient is a 61-year-old female with mixed stress and urge urinary incontinence, hyperlipidemia and history of stage I colon cancer that had a sleep study ordered for evaluation of sleep apnea the patient frequently snores loudly enough that others complain. She frequently has trouble sleeping when she has a cold. She frequently has breathing problems at night observed by herself or others. She frequently falls asleep during the day and frequently falls asleep while driving. She frequently has trouble at school or work due to sleepiness. She occasionally has nightmares. She occasionally remembers her dreams. She frequently has muscular tension. She occasionally notices parts of her body jerk. She occasionally is bothered by pain during the day and occasionally awakened by pain during the night. She frequently wakes up feeling stiff in the morning. She frequently wakes up with sore or achy muscles. She frequently wakes up with pain in the neck, spine or other joints. She goes to bed at 11:00 p.m. on weekdays and at midnight on the weekends. It takes her 10 minutes to fall asleep. She can wake up anywhere from 0-4 times throughout the night to urinate. She is able to fall back asleep within 3-5 minutes. She wakes up at 6:00 a.m. on weekdays and at 7:00 a.m. on the weekends. She typically gets 6-7 hours of sleep per night. She will stay in bed for 30 minutes after waking up in the morning. She currently lives with her . She does not consume any caffeinated beverages within 2 hours of bedtime. She does not engage in physical exercise before bedtime. She will read watch television before falling asleep. She will take unintentional naps in the afternoon or the evening and they are not refreshing. She consumes 2-3 cups of coffee per day. She denies tobacco, alcohol and recreational drug use. PMFSH Past Medical History Medical History History of Hx of colon cancer, stage I Mixed stress and urge urinary incontinence Pure hypercholesterolemia Surgical History Surgical History History of bowel resection (~2016) History of breast biopsy (L) breast bx--benign History of History of laparoscopy History of total hip replacement Hx of cholecystectomy Family History Family History Father Family history of malignant neoplasm of brain Grandparent Cerebrovascular accident maternal grandmother Malignant tumor of pancreas paternal grandfather Mother Hypertension Other Family history of diabetes mellitus in first degree relative Family history of type 1 diabetes mellitus Social History Social History Smoking status: Never smoker Alcohol intake: current Drinks per week: 1 Substance use: never Substance use type: does not use Lack of Transportation: No Lack of Food: Never True Current Housing: I Have Housing Concerned About Future Housing: No Difficulty Paying Gas/Electric Bills: No Difficulty Paying for Meds: No Currently Unemployed: No Education: Master's Degree or Higher Difficulty w/ Childcare or Family Care: No Living arrangements: with family Additional living arrangements comments: SPOUSE Occupation/Education: occupation Gender identity (if verbalized by the patient): Female Sexual Orientation (if Verbalized by the Patient): Straight or Heterosexual Spiritual
[2022-07-27 17:47] VITALS: BMI 26.6
== END 2022-07-21 09:46 | disposition home or self-care (01) ==
LOC: ANHCSM 08:13
PROVIDERS: PCP Family Medicine; Visit Provider Family Medicine
DX: G47.10 Hypersomnia, unspecified (principal); G47.30 Sleep apnea, unspecified
CPT/HCPCS: 95800

== ENCOUNTER 2022-08-24 08:10 | Outpatient (CLI) | payer OTHER, SELFPAY ==
--- NOTE | ~2022-08-24 | MM_ITS ---
EXAMINATION: MM screening [facility] BI w josé HISTORY: Screening mammogram TECHNIQUE: Craniocaudal and mediolateral oblique 3-D tomosynthesis images were obtained and synthetic 2-D images were generated. CAD analysis was submitted and interpreted. COMPARISON: 12/04/2019, 11/09/2019, 08/09/2017, 08/16/2015 BREAST PARENCHYMAL COMPOSITION: There are scattered areas of fibroglandular density. FINDINGS: No suspicious mass, calcification, or architectural distortion are identified in either yfn ast to suggest malignancy. There has been no suspicious interval change. IMPRESSION: 1. No mammographic evidence of malignancy. 2. Recommend routine screening mammography in one year. BI-RADS Category 1: Negative Reviewed, dictated and finalized at location A.
== END 2022-08-24 08:11 | disposition home or self-care (01) ==
LOC: ANHIMG 08:11
PROVIDERS: PCP Family Medicine; Visit Provider Obstetrics & Gynecology
DX: Z12.31 Encounter for screening mammogram for malignant neoplasm of breast (principal)
CPT/HCPCS: 77063; 77067

== ENCOUNTER 2022-08-24 08:43 | Outpatient (CLI) | payer OTHER, SELFPAY ==
[2022-08-24 09:05] LABS: Basophils Absolute Auto 0.1 K/mm3 (0.0-0.1); Basophils Percent Auto 1.1 % (0.2-1.2); Eosinophils Absolute Auto 0.1 K/mm3 (0-0.3); Eosinophils Percent Auto 1.5 % (0-4.4); Hemoglobin 14.6 g/dL (12.0-15.0); Immature Granulocyte Absolute 0.01 K/mm3 (0.00-0.031); Immature Granulocyte Percent A 0.2 % (0-0.5); Lymphocytes Absolute Auto 1.64 K/mm3 (0.9-3.2); Lymphocytes Percent Auto 31.4 % (18.3-44.2); Mean Corpuscular HGB Conc 32.4 g/dl (32-36); Mean Corpuscular Hemoglobin 30.1 pg (26-34); Mean Corpuscular Volume 92.8 fl (80-100); Mean Platelet Volume 9.8 fl (7.4-10.4); Monocytes Absolute Auto 0.5 K/mm3 (0.1-0.6); Monocytes Percent Auto 9.6 % (2.6-8.5); Neutrophils Absolute Auto 2.9 K/mm3 (1.3-6.7); Neutrophils Percent Auto 56.2 % (45.5-73.1); Platelet Count Result 274 k/mm3 (150-375); Red Blood Count 4.85 M/mm3 (4.2-5.4); Red Cell Distribution Width 12.5 % (11.5-14.5); White Blood Count 5.2 K/mm3 (4.5-10.0)
[2022-08-24 09:07] LABS: Appearance Urine Clear (Clear); Bilirubin Urine Negative (Negative); Blood Urine Negative (Negative); Color Urine Yellow (Yellow); Glucose Urine UA Negative (Negative); Ketones Urine Negative (Negative); Leukocyte Esterase Ur Negative LEU/UL (NEGATIVE); Nitrate Urine Negative (Negative); Protein Urine Negative (Negative); Specific Grav Ur 1.026 (1.001-1.035); pH Urine 5.5 (5.0-9.0)
[2022-08-24 09:14] LABS: Alanine Aminotransferase 25 U/L (6-35); Albumin Level 4.5 g/dL (3.5-5.1); Alkaline Phosphatase 63 U/L (38-126); Anion Gap 4 mmol/L (8-16); Aspartate Amino Transferase 33 U/L (14-36); Bilirubin,Total 0.5 mg/dL (0.2-1.3); Blood Urea Nitrogen 19 mg/dL (7-17); Calcium 9.2 mg/dL (8.4-10.2); Carbon Dioxide 29 mmol/L (22-30); Chloride 106 mmol/L (98-107); Cholesterol 200 mg/dL (0-200); Estimated Glomerular Filt Rate > 60; Glucose 88 mg/dL (65-110); HDL Direct 56 mg/dL; Potassium 4.6 mmol/L (3.4-5.0); Sodium 139 mmol/L (137-145); Triglycerides 76 mg/dL (<150)
[2022-08-24 09:19] LABS: Hemoglobin A1C 5.4 % (<5.7)
[2022-08-24 09:25] LABS: LDL Cholesterol Direct 106 mg/dL
[2022-08-24 09:39] LABS: Add Urine Microscopic? NO
[2022-08-24 09:46] LABS: Vitamin D 25 Hydroxy 29.3 ng/mL
== END 2022-08-24 08:44 | disposition home or self-care (01) ==
LOC: ANHLAB 08:44
PROVIDERS: PCP Family Medicine; Visit Provider Family Medicine
DX: R53.83 Other fatigue (principal); R73.9 Hyperglycemia, unspecified; E55.9 Vitamin D deficiency, unspecified; E78.00 Pure hypercholesterolemia, unspecified; N39.46 Mixed incontinence
CPT/HCPCS: 36415; 77063; 77067; 80053; 80061; 81003; 82306; 83036; 84439; 84443; 85025

== ENCOUNTER 2023-04-12 11:40 | Emergency (ER) | payer OTHER, SELFPAY ==
[2023-04-12 12:06] VITALS: BP 109/50; PULSE 81; RESP 16; TEMP 36.8; O2SAT 99
--- NOTE | 2023-04-12 12:48 | ED.FEMALEGU ---
HPI - Female Genitourinary General Chief complaint: Urogenital-Female Stated complaint: UTI Source: patient and RN notes reviewed Mode of arrival: ambulatory Limitations: no limitations History of Present Illness HPI Narrative: 62-year-old female presenting for complaint of burning with urination, frequency, and urgency since yesterday. denies hematuria, nausea, vomiting, abdominal pain, flank pain, constipation, diarrhea, fevers or chills. not taking anything for symptoms. Denies significant history of UTIs. Related Data Allergies Allergy/AdvReac Type Severity Reaction Status Date / Time No Known Allergies Allergy Verified 07/09/22 14:00 Review of Systems Review of Systems: CONSTITUTIONAL: Denies body aches, fever, chills, or sweats. CARDIOVASCULAR: Denies chest pain, palpitations, or edema. RESPIRATORY: Denies cough or dyspnea. GASTROINTESTINAL: Denies abdominal pain, nausea, vomiting, or diarrhea. GENITOURINARY: Reports dysuria, frequency, urgency, denies hematuria, flank pain SKIN: Denies rash, itching, or wounds. MUSCULOSKELETAL: Denies back pain or myalgia. [facility] Past Medical History Medical History History of Hx of colon cancer, stage I Mixed stress and urge urinary incontinence Pure hypercholesterolemia Surgical History Surgical History History of bowel resection (~2016) History of breast biopsy (L) breast bx--benign History of History of laparoscopy History of total hip replacement Hx of cholecystectomy Family History Family History Father Family history of malignant neoplasm of brain Grandparent Cerebrovascular accident maternal grandmother Malignant tumor of pancreas paternal grandfather Mother Hypertension Other Family history of diabetes mellitus in first degree relative Family history of type 1 diabetes mellitus Social History Social History Smoking status: Never smoker Alcohol intake: current Drinks per week: 1 Substance use: never Substance use type: does not use Lack of Transportation: No Lack of Food: Never True Current Housing: I Have Housing Concerned About Future Housing: No Difficulty Paying Gas/Electric Bills: No Difficulty Paying for Meds: No Currently Unemployed: No Education: Master's Degree or Higher Difficulty w/ Childcare or Family Care: No Living arrangements: with family Additional living arrangements comments: SP[place]SE Occupation/Education: occupation Gender identity (if verbalized by the patient): Female Sexual Orientation (if Verbalized by the Patient): Straight or Heterosexual Spiritual care concerns: No Comments At time of signature, I have reviewed and agree with nursing past medical, surgical, social and family history unless otherwise noted. Please see nursing chart for further information. There is no relevant family history pertinent to the presenting complaint Exam Narrative: GENERAL: Well-appearing ENT: Mucous membranes pink and moist. NECK: Normal AROM. Supple. CHEST: No respiratory distress. Clear to auscultation. HEART: Regular rate and rhythm. ABDOMEN: Soft, nontender, nondistended, normal active bowel sounds. No CVA tenderness SKIN: Warm, dry, no rash. NEURO: No focal deficits. Alert and oriented x3. Gait steady. PSYCH: Normal affect. Course Course Emergency Course: Patient is aware of diagnosis, understands and agrees to treatment plan. Anticipatory guidance given. Patient agrees to follow-up as directed and is aware of reasons to seek care at the emergency department. Portions of this record may have been created with voice recognition software Level of Care: Express Care Visit Vital Signs Vital signs: Vital Signs Tem
== END 2023-04-12 13:26 | disposition home or self-care (01) ==
PROVIDERS: Emergency Provider Nurse Practitioner Family; PCP Family Medicine
DX: N39.0 Urinary tract infection, site not specified (principal)
CPT/HCPCS: 81003; 87077; 87086; 87186; 99213; G0463

== ENCOUNTER 2024-04-27 07:11 | Outpatient (CLI) | payer OTHER, SELFPAY ==
--- NOTE | ~2024-04-27 | MR_ITS ---
EXAMINATION: MR hip LT wo con DATE: 04/27/2024 07:56 INDICATION: Left hip pain. TECHNIQUE: Magnetic resonance imaging (MRI) of the left hip was performed without intravenous contras t. COMPARISON: Left hip radiographs 04/14/2024 FINDINGS: Bones/cartilage: There is artifact from a total right hip arthroplasty. There is lumbar dextrocurvature and severe spo ndylosis. The left femoral head/neck morphology is normal. Small [id number] images of left hip dem onstrates full-thickness cartilage loss anterosuperiorly with subchondral edema-like marrow signal in tensity in the acetabulum and marginal osteophytes. Labrum: There is a tear of the left acetabular labrum. Fluid: There is a small left hip joint effusion. There is mild bilateral trochanter bursitis. Soft tissues: There is a small partial tear of right hamstring origin. There is mild tendinopathy of left hamstring origin. The iliopsoas tendons are normal. There is mild tendinopathy of the bilateral gluteus minimu s tendons and right gluteus medius tendon. Left gluteus medius tendon is normal. IMPRESSION: 1. Severe chondrosis of left hip. 2. Small left hip joint effusion. Reviewed, dictated and finalized at location [] ESSION SUPERVISOR
== END 2024-04-27 07:12 | disposition home or self-care (01) ==
LOC: MICIMG 07:11
PROVIDERS: PCP Family Medicine; Visit Provider Orthopaedic Surgery
DX: M94.252 Chondromalacia, left hip (principal); M25.452 Effusion, left hip
CPT/HCPCS: 73721

== ENCOUNTER 2024-07-21 10:00 | Outpatient (RCR) | payer OTHER, SELFPAY ==
--- NOTE | 2024-06-22 11:09 | OPREHPOC ---
Outpatient Therapy Plan of Care This is a Multidisciplinary Plan of Care that may contain components documented by all disciplines (PT, OT, and ST.) PT Problem 1 PT Problem #1 Knowledge Deficit PT Goal 1 Goal / Goal Update [place] with HEP Target Visit 4 PT Goal 2 Goal / Goal Update Report no pain greater than 2/10 for 2 consecutive weeks. Target Visit 8 PT Problem 2 PT Problem #2 Impaired Range of Motion PT Goal 1 Goal / Goal Update 1. Improve left hip abduction ROM t 45 degrees to reduce capsular restriction to hip motion 2. Demonstrate improved pain free internal rotation of the left hip 3. Improve left hip extension to 10+ degrees to assist with terminal stance of gait Target Visit 8 PT Problem 3 PT Problem #3 Impaired Strength PT Goal 1 Goal / Goal Update 1. Improve jenny hip flexion strength to 4+/5 to improve foot clearance 2. Improve jenny hip abduction to 4/5 to improve lateral stability with gait and ADLs Target Visit 8
--- NOTE | 2024-06-22 11:09 | PTOPEVAL1 ---
Assessment and note entered by Artis Morris, PT Evaluation Information Assessment Status Evaluation Diagnosis Left Hip OA ICD-10 Condition Codes (PT) Pain in left hip M25.552 Onset January 2024 Subjective Information Reports that she has a a history of right hip replacement. She has a history of hip instability and pain. Feels that she has a very weak posterior chain. Feels that she cannot engage her glutes as well as she should to do things. She has had x- rays in both her hips and her back. A lot of her pain is activity dependent but she does wake up with pain. She is very active with pickleball and hiking. History of colon cancer in 2017. Reported Pain Level Pain Score 0: Self Report Assessment PT Clinical Summary Patient demonstrates poor hip rotation and abduction with capsular restriction. Poor hip extension noted as well without disassociation of lumbar spine. Patient has poor posterior chain activation as well. Will benefit from skilled therapy to address strength and postural deficits for functional strength and proper joint mechanics of the hip. Restrictions are capsular in nature at this time. Plan of Care Interventions Gait Training,Manual Therapy,Neuro Re-education, Therapeutic Activities,Therapeutic Exercise PT Services Indicated Yes Treatment Frequency and 2x/week for 8 visits Duration These treatments will address the objective and functional deficits as defined above. The patient will be advanced safely and appropriately in order for the patient to progress towards his/her prior level of function. Additional exercises will be introduced and as well as a comprehensive home exercise program upon discharge, if needed, ?to ensure carryover of functional gains achieved in the clinic. This treatment plan has been reviewed and agreement upon by the patient.
--- NOTE | 2024-07-21 10:58 | PTOPDC ---
Assessment and note entered by Patti Escoto, PT Assessment Status Discharge Diagnosis Left Hip OA ICD-10 Condition Codes (PT) Pain in left hip M25.552 Onset January 2024 Subjective Information played [employer] ball this morning for 2 hours; doing everything and exercising more; more control of my exercises and awareness of recruiting my gluts; have a good exercise routine for home; ready to be finished with therapy. Reported Pain Level Pain Score Self Report Additional Pain Score Comments pain range in the past week 0-5/10 increase pain: walking 45 minutes have pain, but does not limit her walking; in/out car decrease pain: rest, stretch, not taking script for inflammation; not using heat or ice lately-- doing better Assessment PT Clinical Summary Alma Delia has received 7 PT sessions. Compared to the initial evaluation: pain rating from 0-6/10 to 0-5/10; LE functional self rating of 41 to 18% limitation in activity level; increase L hip abduction ROM to 40' and extension to 10'; continues to have pain over anterior hip with L hip IR; increase strength of L hip abduction and extension musculature with improved awareness of motion and stabilization with movements. Education completed for HEP. The goals were partially achieved. Discharge PT. She is to continue with HEP and activity as tolerated, monitoring her pain in hip and back. Plan of Care PT Services Indicated No
== END 2024-07-21 13:58 | disposition home or self-care (01) ==
LOC: ANHPT 10:00
PROVIDERS: PCP Internal Medicine; Visit Provider Orthopaedic Surgery
DX: M16.12 Unilateral primary osteoarthritis, left hip (principal)
CPT/HCPCS: 97110; 97140; 97161

== ENCOUNTER 2024-08-08 09:29 | Outpatient (CLI) | payer OTHER, SELFPAY ==
[2024-08-08 09:59] LABS: Basophils Absolute Auto 0.1 K/mm3 (0.0-0.1); Basophils Percent Auto 1.5 % (0.2-1.2); Eosinophils Absolute Auto 0.1 K/mm3 (0-0.3); Eosinophils Percent Auto 1.7 % (0-4.4); Hematocrit 42.3 % (37.0-47.0); Hemoglobin 13.5 g/dL (12.0-15.0); Immature Granulocyte Absolute 0.03 K/mm3 (0.00-0.031); Immature Granulocyte Percent A 0.5 % (0-0.5); Lymphocytes Absolute Auto 2.08 K/mm3 (0.9-3.2); Lymphocytes Percent Auto 34.8 % (18.3-44.2); Mean Corpuscular HGB Conc 31.9 g/dl (32-36); Mean Corpuscular Hemoglobin 29.9 pg (26-34); Mean Corpuscular Volume 93.6 fl (80-100); Mean Platelet Volume 9.8 fl (7.4-10.4); Monocytes Absolute Auto 0.5 K/mm3 (0.1-0.6); Neutrophils Absolute Auto 3.2 K/mm3 (1.3-6.7); Neutrophils Percent Auto 53.5 % (45.5-73.1); Platelet Count Result 266 k/mm3 (150-375); Red Blood Count 4.52 M/mm3 (4.2-5.4); Red Cell Distribution Width 12.6 % (11.5-14.5)
[2024-08-08 10:07] LABS: Cholesterol 204 mg/dL (0-200); HDL Direct 68 mg/dL; Triglycerides 53 mg/dL (<150)
[2024-08-08 10:09] LABS: Alanine Aminotransferase 16 U/L (6-35); Albumin Level 4.1 g/dL (3.5-5.1); Alkaline Phosphatase 57 U/L (38-126); Anion Gap 8 mmol/L (4-12); Aspartate Amino Transferase 24 U/L (14-36); Bilirubin,Total 0.3 mg/dL (0.2-1.3); Blood Urea Nitrogen 20 mg/dL (7-17); Calcium 9.2 mg/dL (8.4-10.2); Carbon Dioxide 26 mmol/L (22-30); Chloride 107 mmol/L (98-107); Estimated Glomerular Filt Rate > 60; Glucose 91 mg/dL (65-110); Potassium 4.6 mmol/L (3.4-5.0); Sodium 141 mmol/L (137-145)
[2024-08-08 10:18] LABS: LDL Cholesterol Direct 94 mg/dL
--- OUTSIDE RECORDS SUMMARY | 2024-08-08 10:25 | XMS_ITS | Clinical Summary ---
Author Organization [facility] Address [address] [place] [address] Care Team Providers Care Truant Officer Name Role Phone Joe Munoz MD Primary Care Provider [phone] Source Comments [facility] [employer],non-owned Affiliates and Associated Physician Practices is amultiple site organization consisting of ambulatory clinics and hospital sitesin [place], [place], [place] and [place]. This disclosure is being madepursuant to the Care Everywhere program and may not contain all information available regarding this patient. 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 Gender Identity Not on file Sexual Orientation Not on file Plan of Treatment Health Maintenance Due Date Last Done Comments COLOGUARD (AGES 45-75) - COL ON CA SCREENING 1961 COLON MONITORING 1961 COLONOSCOPY - COLON CA SCREENING 1961 CT COLONOGRAPHY - COLON CA SCREENING 1961 Colorectal Cancer Screening 1961 FIT - COLON CA SCREENING 1961 FLEX SIG - COLON CA SCREENING 1961 LIPID TESTING 1960 MAMMOGRAM 1961 HIV SCREENING 1976 HEPATITIS C SCREENING 11/27/1979 DTAP/TDAP/TD VACCINES (1 - Tdap) 1980 PNEUMOCOCCAL VACCINE 50+ (1 of 1 - PCV) 12/02/2011 ZOSTER VACCINE (1 of 2) 12/02/2011 COVID-19 VACCINE ( - 2023-2 5 season) 2023 DEPRESSION SCREENING 04/12/2024 INFLUENZA VACCINE (Season Ended) 2024 Respiratory Syncytial Virus (RSV) Vaccine Pt: or over 60 yrs (1 - 1-dose 75+ series) 2036 HEPATITIS B VACCINE Aged Out No longe r eligible based on patient's age to complete this topic HIB VACCINE Aged Out No longer eligi ble based on patient's age to complete this topic HPV VACCINE Aged Out No longer eligi ble based on patient's age to complete this topic MENINGOCOCCAL (Group B) VACC INE SHARED DECISION-MAKING Aged Out No longer eligibl e based on patient's age to complete this topic MENINGOCOCCAL GROUPS A/C/Y/W VACCINE Aged Out No longer eligible b ased on patient's age to complete this topic Insurance [facility] Care Teams Truant Officer Relationship Specialty Start Date End Date Joe Munoz MD [address] [place] [address] PCP - General 09/04/15
--- OUTSIDE RECORDS SUMMARY | 2024-08-08 10:25 | XMS_ITS | Clinical Summary ---
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 Gender Identity Not on file Sexual Orientation Not on file Plan of Treatment Health Maintenance Due Date Last Done Comments Hepatitis C Virus (HCV) Screening 1960 TdaP Immunization 1960 Colonoscopy 2006 Colorectal Cancer Screening 2006 Cologuard 12/02/2011 Immunochemical Fecal Occult Blood 12/02/2011 Pneumococcal Immunization (5 0+ years) (1 of 1 - PCV) 12/02/2011 Zoster Immunization (2 of 3) 12/17/2015 10/22/2015 Influenza Immunization (#1) 2023 10/22/2015 SARS-COV-2 Immunization ( season) 2023 04/16/2021, 05/07/2020, 04/16/2020 Respiratory Syncytial Virus (RSV) Immunization (Adult) (1 - 1-dose 75+ series) 2036 Hepatitis B Immunization Aged Out No longer eligible based on patient's age to complete this topic Meningococcal Immunization (ACWY) Aged Out No longer eligible b ased on patient's age to complete this topic Rotavirus Immunization Aged Out No lo nger eligible based on patient's age to complete this topic
--- OUTSIDE RECORDS SUMMARY | 2024-08-08 10:25 | XMS_ITS | Encounter Summary ---
Author Organization [facility] Address [address] [place] [address] Care Team Providers Care Associate Professor Of English Name Role Phone Joe Munoz MD Primary Care Provider [phone] Encounter Details Date Type Department Care Team (Late st Contact Info) Description 02/08/2018 Lab Requisition [facility] [address] [place] [id number] Jw Dunaway MD [address] [place] [address] Social History Tobacco Use Types Packs/Day Years Used Date Smoking Tobacco: Never Assessed Comments Unknown Sex and Gender Information Value Date Recorded Sex Assigned at Not on file 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 Gender Identity Not on file Sexual Orientation Not on file documented as of this encounter Plan of Treatment Not on file documented as of this encounter Procedures Procedure Name Priority Date/Time Associated Diagnosis Comments DERMATOPATHOLOGY Routine 02/08/2018 12:0 0 AM CDT documented in this encounter Results * DERMATOPATHOLOGY (02/08/2018 12:00 AM CDT) Case Report Dermatopathology Report Case: [id number] Authorizing Provider: Jw Dunaway MD Collected: 02/08/2018 12:00 AM Pathologist: Ellie Yeager MD Received: 02/08/2018 11:16 AM Specimens: A) - Skin, left upper back on post shoulder B) - Skin, right lumbar paraspinal 8 1:14 PM CDT DERMATOPATHOLOGY LABORATORY Final Diagnosis Specimen A. SKIN, left upper back on post shoulder: SEBORRHEIC KERATOSIS, MACULAR (L82.1) DERMAL FIBROSIS (L90.5) Specimen B. SKIN, right lumbar paraspinal: SEBORRHEIC KERATOSIS, INFLAMED (L82.0) 1:14 PM T DERMATOPATHOLOGY LABORATORY Clinical History A-B: R/O SCC, BCC, Rao's, HAK, ISK. 1:14 PM T DERMATOPATHOLOGY LABORATORY Gross Description Specimen A: Received is one formalin filled container labeled with the patient's name and designated left upper back on post shoulder. The specimen consists of a shave biopsy measuring [id number]. Jar 0. Specimen B: Received is one formalin filled container labeled with the patient's name and designated right lumbar paraspinal. The specimen consists of a shave biopsy measuring [id number]. Jar 0. 1:14 PM T DERMATOPATHOLOGY LABORATORY Microscopic Description Specimen A. SKIN, left upper back on post shoulder: Sections show a relatively broad, flat proliferation of small keratinocytes. The surface is gently papillated, and there is increased basilar pigmentation. There is focal dermal fibrosis. Specimen B. SKIN, right lumbar paraspinal: There is hyperkeratosis, parakeratosis, papillomatosis, and acanthosis of the epidermis. There is a lymphohistiocytic infiltrate within the papillary dermis that is focally lichenoid. 1:14 PM T DERMATOPATHOLOGY LABORATORY Disclaimer An external and internal positive and negative controls are appropriate for the histochemical, immunohistochemical and immunofluorescence stain(s) in this case (if any), except where stated explicitly. The performance characteristics of the stain(s) cited in this report were developed and its performance characteristic determined by the Dermatopathology Laboratory at [facility]. These tests need not be, and therefore are not, approved by the [place] Food and Drug Administration. The tests are used for clinical purposes. Billing Codes Specimen Charges Stain Charges 82762 81729 1 1 1:14 PM CDT DERMATOPATHOLOGY LABORATORY Embedded Images 1:14 PM CDT DERMATOPATHOLOGY LABORATORY Pathology/Cytology TISSUE SPECIMEN FROM SKIN / Unknown 02/08/2018 02/08/2018 11:16 AM CDT Miscellaneous samples (specimen) TISSUE SPECIMEN FROM SKIN / Unknown 02/08/2018 02/08/2018 11:16 AM CDT us Jw Dunaway MD LAB - PATHOLOGY/CYTOLOGY ORD ERABLES Final Result DERMATOPATHOLOGY LABORATORY [facility] - Department of Dermatology [address] [place] [address], 5th Floor Lab [address] [phone] documented in this encounter Visit Diagnoses Not on filedocumented in this encounter Care Teams Associate Professor Of English Relationship Specialty Start Date End Date Joe Munoz MD [address] [facility] [address] [place] [address] PCP - General 09/04/15 documented as of this encounter
--- OUTSIDE RECORDS SUMMARY | 2024-08-08 10:25 | XMS_ITS | Clinical Summary ---
Author Organization [facility] Medical Office Building 1 Address [address] [address] Care Team Providers Care Senior Planner Name Role Phone Eric Fraga DO Primary Care Provider [phone] Allergies No known active allergies Medications No known medications Active Problems Problem Noted Date Diagnosed Date Colon cancer 09/02/2015 Immunizations Immunization Administration Dates Next Due Influenza, Unspecified 10/22/2015 ZOSTER LIVE 10/22/2015 Social History Tobacco Use Types Packs/Day Years Used Date Smoking Tobacco: Never Assessed Personal Safety Answer Date Recorded Getting School Help Needed Not on file 06/26 Comments Unknown Sex and Gender Information Value Date Recorded Sex Assigned at Not on file 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 Gender Identity Not on file Sexual Orientation Not on file Last Filed Vital Signs Vital Sign Reading Time Taken Comments Blood Pressure - - Pulse - - Temperature - - Respiratory Rate - - Oxygen Saturation - - Inhaled Oxygen Concentration - - Weight 77.1 kg (170 lb) 11/27/2020 9:16 AM CDT Height 168.3 cm (5' 6.25 ) 11/27/2020 9:16 AM CD T Body Mass Index 27.23 11/27/2020 9:16 AM CDT Plan of Treatment Not on file Insurance [facility] H[facility]PP[facility] Address: [place] [address] [facility] Address: [place] [address] Care Teams Senior Planner Relationship Specialty Start Date End Date Eric Fraga DO PCP - General Internal Medicine 10/16/20
--- OUTSIDE RECORDS SUMMARY | 2024-08-08 10:25 | XMS_ITS | Referral Summary ---
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
[2024-08-08 10:27] LABS: Free T4 Free Thyroxine 0.98 ng/dL (0.78-2.19); Vitamin D 25 Hydroxy 32.7 ng/mL
[2024-08-08 11:05] LABS: Hemoglobin A1C 5.4 % (<5.7)
== END 2024-08-08 09:30 | disposition home or self-care (01) ==
PROVIDERS: PCP Family Medicine; Referring Provider Family Medicine; Visit Provider Orthopaedic Surgery
DX: E55.9 Vitamin D deficiency, unspecified (principal); R73.9 Hyperglycemia, unspecified; R53.83 Other fatigue; E78.00 Pure hypercholesterolemia, unspecified; M16.32 Unilateral osteoarthritis resulting from hip dysplasia, left hip; Z79.1 Long term (current) use of non-steroidal anti-inflammatories (NSAID)
CPT/HCPCS: 36415; 80053; 80061; 82306; 83036; 84439; 84443; 85025

== ENCOUNTER 2025-03-01 10:08 | Outpatient (CLI) | payer OTHER, SELFPAY ==
--- NOTE | ~2025-03-01 | DEXA_ITS ---
Bone Density Report Name: MARCIE SPENCER Age: 64 Sex: Female Ethnicity: White Date of : 1960 Indication: postmenopausal; screening for osteoporosis; cancer; Referring Provider: NITZA ANDERSON Study: Bone densitometry was performed. Exam Date: March 01, 2025 Accession number: [id number] Bone Density: Region BMD T-score Z-score Classification AP Spine(L1-L4) 0.905 -1.3 0.3 Osteopenia Femoral Neck (Left) 0.898 0.4 1.9 Normal Total Hip (Left) 0.945 0.0 1.1 Normal World Health Organization criteria for BMD impression classify patients as: Normal (T-score at or above -1.0), Osteopenia (T-score between -1.0 and -2.5), or Osteoporosis (T-score at or below -2.5). 10-year Fracture Risk(1): Major Osteoporotic Fracture 6.3% Hip Fracture 0.1% Reported Risk Factors: [place] (), Neck BMD=0.898, BMI=26.1 (1) FRAX(R) Version 3.08. Fracture probability calculated for an untreated patient. Fracture probability may be lower if the patient has received treatment. Clinical Information Provided by Patient: Has the following medical conditions: Cancer, colon cancer Patient maximum height was 67 Menopause Age: 56 Drinks caffeinated beverages Onset of menses at age 17 Number of children 2 Impression: The patient has low bone mass, based on the Total Spine T-score. The patient has an estimated ten-year risk of hip fracture of 0.1% and an estimated ten-year risk of major fracture of 6.3%, based on the WHO FRAX algorithm. Discussion: BONE DENSITY IS LOW AT ONE OR MORE SKELETAL SITES. This patient's lowest T-score is low at one or more skeletal sites. It meets the World Health Organization's (WHO) criteria for ?low bone mass? (T-score between -1.0 and -2.5). The patient's 10-year risk of fracture as calculated by FRAX is less than the threshold where pharmacological therapy is recommended by the National Osteoporosis Foundation (NOF). However, all treatment decisions require clinical judgment and consideration of individual patient factors, including patient preferences, comorbidities, previous drug use, risk factors not captured in the FRAX model (e.g., frailty, falls, vitamin D deficiency, increased bone turnover, interval significant decline in bone density) and possible under or overestimation of fracture risk by FRAX. The patient should follow a healthful lifestyle (good nutrition with adequate calcium and vitamin D, and appropriate weight-bearing exercise). Follow-Up: Consider repeating this study in 2 to 3 years to reassess this patient's status, or sooner if there is some new clinical indication. Reported by: YOJANA on 03/01/2025 10:44:00 AM. Reviewed, dictated and finalized at location A.
--- NOTE | ~2025-03-01 | MM_ITS ---
EXAMINATION: MM screening aracely BI w josé HISTORY: Screening TECHNIQUE: Craniocaudal and mediolateral oblique 3-D tomosynthesis images were obtained and synthetic 2-D images were generated. CAD analysis was submitted and interpreted. COMPARISON: Comparison to multiple prior studies sequentially, with oldest reviewed study dated , 09/27/2013 BREAST PARENCHYMAL COMPOSITION: Not Dense: There are scattered areas of fibroglandular density. FINDINGS: There is no evidence of suspicious mass, calcification, or architectural distortion to suggest malignancy in either breast. IMPRESSION: 1. No mammographic evidence of malignancy. 2. Recommend routine screening mammography in one year. BI-RADS Category 1: Negative Reviewed, dictated and finalized at location B. ACY ANALYST
== END 2025-03-01 10:09 | disposition home or self-care (01) ==
LOC: MICIMG 10:09
PROVIDERS: PCP Family Medicine; Visit Provider Obstetrics & Gynecology
DX: Z12.31 Encounter for screening mammogram for malignant neoplasm of breast (principal); M85.88 Other specified disorders of bone density and structure, other site; Z78.0 Asymptomatic menopausal state; Z13.820 Encounter for screening for osteoporosis
CPT/HCPCS: 77063; 77067; 77080

== ENCOUNTER 2025-03-02 13:54 | Outpatient (CLI) | payer OTHER, SELFPAY ==
--- OUTSIDE RECORDS SUMMARY | 2025-03-02 14:02 | XMS_ITS | Encounter Summary ---
Author Organization [facility] Health Address [address] [facility] [place] [address] Care Team Providers Care Audit Director Name Role Phone Joe Munoz MD Primary Care Provider [phone] Encounter Details Date Type Department Care Team (Late st Contact Info) Description 02/08/2018 Lab Requisition [facility] Care DermPath Lab [address] [place] [phone] Jw Dunaway MD [address] [place] [address] Social History Tobacco Use Types Packs/Day Years Used Date Smoking Tobacco: Never Assessed Comments Unknown Sex and Gender Information Value Date Recorded Sex Assigned at Not on file 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 1:14 PM CDT DERMATOPATHOLOGY LABORATORY Gross Description Specimen A: Received is one formalin filled container labeled with the patient's name and designated left upper back on post shoulder. The specimen consists of a shave biopsy measuring [id number]. Jar 0. Specimen B: Received is one formalin filled container labeled with the patient's name and designated right lumbar paraspinal. The specimen consists of a shave biopsy measuring [id number]. Jar 0. 1:14 PM CDT DERMATOPATHOLOGY LABORATORY Microscopic Description Specimen A. SKIN, [...] dermis that is focally lichenoid. 1:14 PM CDT DERMATOPATHOLOGY LABORATORY Disclaimer An external and internal positive and negative controls are appropriate for the histochemical, immunohistochemical and immunofluorescence stain(s) in this case (if any), except where stated explicitly. The performance characteristics of the stain(s) cited in this report were developed and its performance characteristic determined by the Dermatopathology Laboratory at [facility]. These tests need not be, and therefore are not, approved by the [place] Food and Drug Administration. The tests are used for clinical purposes. Billing Codes Specimen Charges Stain Charges 04163 23682 1 1 1:14 PM CDT DERMATOPATHOLOGY LABORATORY Embedded Images 1:14 PM CDT DERMATOPATHOLOGY LABORATORY Pathology/Cytology TISSUE SPECIMEN FROM SKIN / Unknown 02/08/2018 02/08/2018 11:16 AM CDT Miscellaneous samples (specimen) TISSUE SPECIMEN FROM SKIN / Unknown 02/08/2018 02/08/2018 11:16 AM CDT us Jw Dunaway MD LAB - PATHOLOGY/CYTOLOGY ORD ERABLES Final Result DERMATOPATHOLOGY LABORATORY [facility] - Department of Dermatology [address] [place] [address], 5th Floor Lab [address] [phone] documented in this encounter Visit Diagnoses Not on filedocumented in this encounter Care Teams Audit Director Relationship Specialty Start Date End Date Joe Munoz MD [address] [facility] [address] [place] [address] PCP - General 09/04/15 documented as of this encounter
--- OUTSIDE RECORDS SUMMARY | 2025-03-02 14:02 | XMS_ITS | Clinical Summary ---
Author Organization [facility] Address [address] [place] [address] Care Team Providers Care Coagulation Operator Name Role Phone Joe Munoz MD Primary Care Provider [phone] Source Comments [facility],non-owned Affiliates and Associated Physician Practices is amultiple site organization consisting of ambulatory clinics and hospital sitesin [place], [place], [place] and [place]. This disclosure is being madepursuant to the Care Everywhere program and may not contain all information available regarding this patient. 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 Gender Identity Not on file Sexual Orientation [...] 11/27/1979 DTAP/TDAP/TD VACCINES (1 - Tdap) 1980 PAP SMEAR 1982 Cervical Cancer Screening 12/02/1991 PAP with HPV 12/02/1991 PNEUMOCOCCAL VACCINE 50+ (1 of 1 - PCV) 12/02/2011 ZOSTER VACCINE (1 of 2) 12/02/2011 DEPRESSION SCREENING 04/12/2024 COVID-19 VACCINE (1 - 2024-2 6 season) 2024 INFLUENZA VACCINE (#1) 2024 Respiratory Syncytial Virus (RSV) Vaccine Pt: [...] patient's age to complete this topic Insurance [facility] Care Teams Coagulation Operator Relationship Specialty Start Date End Date Joe Munoz MD [address] [facility] [place] [address] [place] [address] PCP - General 09/04/15
--- OUTSIDE RECORDS SUMMARY | 2025-03-02 14:02 | XMS_ITS | Clinical Summary ---
Author Organization 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 Gender Identity Not on file Sexual Orientation Not on file Plan of Treatment Health Maintenance Due Date Last Done Comments Hepatitis C Virus (HCV) Screening 1961 TdaP Immunization 1961 Pap Smear 1982 Cervical Cancer Screening (CCS) 12/02/1991 HPV/Cotest 12/02/1991 Cologuard 2006 Colonoscopy 2006 Colorectal Cancer Screening 2006 Immunochemical Fecal Occult Blood 2006 Pneumococcal Immunization (5 0+ years) (1 of 1 - PCV) 12/02/2011 Zoster Immunization (2 of 3) 12/17/2015 10/22/2015 Influenza Immunization (#1) 2024 10/22/2015 SARS-COV-2 Immunization ( season) 2024 04/16/2021, 05/07/2020, 04/16/2020 Respiratory Syncytial Virus (RSV) Immunization (Adult) (1 - 1-dose 75+ series) 2036 Hepatitis B Immunization Aged Out No longer eligible based on patient's age to complete this topic Human Papillomavirus (HPV) Immunization Aged Out No longer eligible b ased on patient's age to complete this topic Meningococcal Immunization (ACWY) Aged Out No longer eligible b ased on patient's age to complete this topic Rotavirus Immunization Aged Out No lo nger eligible based on patient's age to complete this topic
--- OUTSIDE RECORDS SUMMARY | 2025-03-02 14:02 | XMS_ITS | Clinical Summary ---
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
--- NOTE | 2025-03-02 15:13 | ECG_ITS ---
Test Date: 2025-03-02 15:23:12 Measurements Intervals [place] Rate: 83 P: 58 WA: 205 QRS: 53 QRSD: 75 T: 55 QT: 395 QTc: 465 Interpretive Statements SINUS RHYTHM WARNING: DATA QUALITY MAY AFFECT INTERPRETATION No previous ECG available for comparison Electronically Signed On 03-02-2025 19:07:50 [place] by Lulu Brewer M.D.
[2025-03-02 15:36] LABS: Hematocrit 41.4 % (37.0-47.0); Hemoglobin 13.4 g/dL (12.0-15.0); Immature Granulocyte Percent A 0.2 % (0-0.5); Lymphocytes Absolute Auto 2.48 K/mm3 (0.9-3.2); Mean Corpuscular HGB Conc 32.4 g/dl (32-36); Mean Corpuscular Hemoglobin 29.8 pg (26-34); Mean Corpuscular Volume 92.2 fl (80-100); Nucleated Red Blood Cells Absolute Auto 0.000 K/mm3 (0.0-0.012); Nucleated Red Blood Cells Perc 0.0 % (0.0-0.2); Platelet Count Result 253 k/mm3 (150-375); Red Blood Count 4.49 M/mm3 (4.2-5.4); White Blood Count 8.1 K/mm3 (4.5-10.0)
[2025-03-02 15:47] LABS: Albumin Level 4.2 g/dL (3.5-5.1); Anion Gap 7 mmol/L (4-12); Blood Urea Nitrogen 27 mg/dL (7-17); Calcium 9.8 mg/dL (8.4-10.2); Carbon Dioxide 27 mmol/L (22-30); Chloride 102 mmol/L (98-107); Estimated Glomerular Filt Rate > 60; Glucose 91 mg/dL (65-110); Potassium 4.1 mmol/L (3.4-5.0); Sodium 136 mmol/L (137-145)
[2025-03-02 16:09] LABS: Hemoglobin A1C 5.5 % (<5.7)
== END 2025-03-02 13:55 | disposition home or self-care (01) ==
LOC: ANHSURGERY 13:58
PROVIDERS: PCP Family Medicine; Visit Provider Orthopaedic Surgery
DX: Z01.810 Encounter for preprocedural cardiovascular examination (principal); M16.32 Unilateral osteoarthritis resulting from hip dysplasia, left hip
CPT/HCPCS: 80048; 80307; 82040; 83036; 85025; 87081; 93005

== ENCOUNTER 2025-03-19 00:42 | Day surgery (SDC) | payer OTHER, SELFPAY ==
[2025-03-02 14:19] VITALS: BP 101/63; PULSE 84; RESP 16; TEMP 37; O2SAT 95; BMI 26.4
--- NOTE | 2025-03-02 14:48 | PC.NURSE ---
[facility] has started construction of its new state of the art ER which will open Spring 2026. With this, we anticipate parking may be a challenge for some our surgical patients and families. Parking spaces are limited but are available for all Surgical, obstetrics, and ER patients sharing this lot. If you arrive and find you are having a hard time finding a parking space, please note that we understand the challenges, please drive around the hospital and park near Hospital Entrance 1. When you enter this entrance, you can ask a volunteer to direct or take you back to the surgical waiting area to check in. We appreciate everyone?s understanding of these expected challenges while we build for your future. Report to the Outpatient Waiting Room, entrance under the green pavilion located off [address], at time ___6:00AM___ on date ___03/19/25__. Planned Procedure Time: ___7:30AM____.? Time changes happen often and if your time is changed the preop area will call you the afternoon before. - You and your visitor will be asked to self-screen and do not enter if you have any COVID symptoms. Please call surgeon if you need to reschedule. - A mask is optional within the hospital at this time. Patients may have clear liquids (water, carbonated beverages, clear teas, apple juice) until 3 hours prior to surgery (4:30AM) with a maximum of 20 ounces. - No food from midnight until time of surgery and no smoking, or chewing tobacco (or any form of nicotine). No chewing gum, candy or mints. Take only the following medications with a SIP of water on the morning of surgery: __NONE DO NOT STOP ANY OF YOUR OTHER PRESCRIPTION MEDICATIONS PRIOR TO SURGERY EXCEPT THE FOLLOWING Hold all vitamins and supplements for 3 days per anesthesiologist. Medications to discontinue per physician ___HOLD DICLOFENAC (NSAID) 7 DAYS PRE-OP PER DR CONNER Date to take last dose 03/11/25 Please no make-up, nail turkmen, hairspray, perfume, deodorant, or body powder the day of surgery.? No jewelry (including any body piercings) or valuables the day of surgery, leave them at home.? Please take a shower or bath the night before, or the morning of, surgery with an antibacterial soap.? Wear comfortable, loose fitting clothing.? - Jewelry must be removed prior to entering the operating room.? Rings and piercings that are not removed may be cut off. - The hospital will not accept responsibility for valuables.? - Please leave all valuables, including medications, at home the day of surgery. If you are going home after surgery, a licensed jinriksha driver must drive you home.? - NO public transportation without another adult if you receive anesthesia. - We recommend that an adult stay with you for 24 hours following discharge. - We also recommend that you do not drive, make important decision, drink alcoholic beverages, or take any drugs that were not prescribed by your health care provider for at least 24 hours after your discharge time. Follow any additional instructions given to you from your surgeon. Telephone instructions given to ____PATIENT and asked if any additional questions and then verbalized understanding. Patient advised to call surgeon office or pre surgery nurse liaison [phone] if any additional questions.
--- NOTE | 2025-03-16 10:33 | PM.IMHP2 ---
H&P: HPI History of Present Illness Date/Time: 03/16/25 10:33 Chief Complaint: Left hip DJD Narrative: HPI: 64-year-old female presents today for a left anterior total hip arthroplasty. She has been having progressively worsening symptoms over last year in the left hip. Most the pain is in the groin as well as the anterior lateral hip. Patient has tried diclofenac in the past with some relief of her symptoms but she does not wish to stay on it due to concerns about side effects. Patient will have pain regularly coming from the hip. She has pain if she pivots or turns on the hip. At times it is rather severe. She has difficulty with stairs and has to do 1 at a time. Patient has had an MRI scan of her hip which demonstrated severe chondrosis of the left hip with subchondral edema in the anterior superior hip as well. Patient has had right total hip arthroplasty done in 2020. She had uneventful recovery and is very happy with her results. Patient has reached a point where she feels she would rather proceed with total hip arthroplasty on her left side rather than continue nonsurgical treatment. X-rays demonstrate minimal superior medial joint space narrowing. MRI scan demonstrates severe chondrosis of the left hip involving the anterior superior aspect of the hip with subchondral bony edema changes in the anterior superior hip joint. Physical exam: 64-year-old female alert pleasant. BMI is 26.4. Her left hip flexion is limited to 90? with rather severe groin pain at 90?. Internal rotation is 0 causing moderate groin pain, external rotation of 30? causing moderate lateral hip pain. Stinchfield maneuver causing moderate medial groin pain. She has normal abduction strength in the lateral position. Mild tenderness over the greater trochanter. Skin around the hip and groin crease are all normal. 2+ dorsalis pedis and posterior tibial artery pulse palpable. Normal sensation to the left lower extremity. No edema in either lower extremity. Impression: 64-year-old female has rather severe osteoarthritis in the left hip that is well seen on the MRI scan. Patient also has severe symptoms on a daily basis that have not improved from nonsurgical treatment. Patient is very happy with her right total hip arthroplasty and would like to proceed with the left this point. Surgical procedure well as the risks and complications were discussed in detail all questions were answered and we will proceed. She will see her primary care doctor for pre-surgical clearance. She will avoid the diclofenac as well as any other aspirin or ibuprofen products 1 week prior to surgery. Patient's hemoglobin is 13.4 platelets 253. Chem panel is within normal limits creatinine 0.90. Her nasal swab was negative. Review of Systems Review of Systems: All systems reviewed & are unremarkable except as noted in HPI and below PMFSH Past Medical History Medical History Screening mammogram, encounter for History of Hx of colon cancer, stage I Mixed stress and urge urinary incontinence Pure hypercholesterolemia Surgical History Surgical History History of History of breast biopsy (L) breast bx--benign History of laparoscopy History of bowel resection (~2015) Hx of cholecystectomy History of total hip replacement Family History Family History Father Family history of malignant neoplasm of brain Grandparent Cerebrovascular accident maternal grandmother Malignant tumor of pancreas paternal grandfather Mother Hypertension Other Family history of diabetes mellitus in first degree relative Family history of type 1 diabetes mellitus Social History Social History Smoking status: Never smoker Second hand tobacco smoke exposure: No Alcohol intake: current Drinks per week: 1 Substance use: never Substance use type: does not use Lack of Transportation: No Lack of Food: Never True Current Housing: I Have Housing Concerned About Future Housing: No Difficulty Paying Gas/Electric Bills: No Difficulty Paying for Meds: No Currently Unemployed: No Education: Bachelor's Degree Difficulty w/ Childcare or Family Care: No Living arrangements: with family Additional living arrangements comments: [facility]SE Occupation/Education: 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 Gender identity (if verbalized by the patient): Female Sexual Orientation (if Verbalized by the Patient): Straight or Heterosexual Spiritual care concerns: No Meds Home Medications and Allergies Home Medications ?Medication ?Instructions ?Recorded ?Confirmed ?Type diclofenac potassium 50 mg tablet 50 mg PO BID PRN pain 02/28/25 03/02/25 History ibuprofen 200 mg capsule 400 mg PO Q6H PRN pain 03/02/25 03/02/25 History Allergies Allergy/AdvReac Type Severity Reaction Status Date / Time Anesthetics - Amide Type - AdvReac Mild Unknown Verified 03/02/25 14:16 Select A Exam Resp: Auscultation: clear to auscultation bilaterally Cardio: Rate: regular rate Rhythm: regular rhythm Assessment and Plan Assessment and plan (1) 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
[2025-03-19] VITALS (12 sets, daily range): BP systolic 105–131; BP diastolic 45–72; PULSE 80–106; RESP 10–20; TEMP 36–37.2; O2SAT 92–100; BMI 25.8
--- NOTE | ~2025-03-19 | XR_ITS ---
EXAMINATION: XR hip LT 1V w AP pelvis DATE: 03/19/2025 10:53 INDICATION: Postop TECHNIQUE: Left hip and pelvis were obtained. COMPARISON: February 13, 2025 FINDINGS: Left total hip arthroplasty hardware has been placed with bones and hardware in gross alignment. Right-sided arthroplasty hardware appears stable. IMPRESSION: 1. As above Reviewed, dictated and finalized at location A. LSTERER INSIDE IMPRESSION: 1. As above
--- NOTE | ~2025-03-19 | XR_ITS ---
EXAMINATION: XR surgery orthopedic DATE: 03/19/2025 10:35 INDICATION: Anterior approach left total hip arthroplasty TECHNIQUE: Single fluoroscopic AP image of the left hip were obtained procedure performed by Dr. Garcia. Radiologist was not present for the imaging or procedure. The amount of fluoroscopy time used during this procedure was 0.9 minutes. The dose area product was 0.308 mGym^2. COMPARISON: None. FINDINGS: Noncemented left total hip arthroplasty in near-anatomic alignment. There is expected lucent soft tissue gas at the operative bed. IMPRESSION: 1. Fluoroscopy utilized during placement of a left total hip arthroplasty which is in near-anatomic alignment. See procedure note for further detail. Reviewed, dictated and finalized at location A. IDE OPERATOR
--- OUTSIDE RECORDS SUMMARY | 2025-03-19 00:44 | XMS_ITS | Encounter Summary ---
Author Organization [facility] Health Address [address] [facility] [place] [address] Care Team Providers Care Bulk Receiver Name Role Phone Joe Munoz MD Primary Care Provider [phone] Encounter Details Date Type Department Care Team (Late st Contact Info) Description 02/08/2018 Lab Requisition [facility] Care DermPath Lab [address] [place] [phone] Jw Dunaway MD [address] [place] [address] Social History Tobacco Use Types Packs/Day Years Used Date Smoking Tobacco: Never Assessed Comments Unknown Sex and Gender Information Value Date Recorded Sex Assigned at Not on file 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 Jar 0. Specimen B: Received is one formalin filled container labeled with the patient's name and designated right lumbar paraspinal. The specimen consists of a shave biopsy measuring [id number]. Jar 0. 1:14 PM CDT DERMATOPATHOLOGY LABORATORY [...] determined by the Dermatopathology Laboratory at [facility]. These tests need not be, and therefore are not, approved by the [place] Food and Drug Administration. The tests are used for clinical purposes. Billing Codes Specimen Charges Stain Charges 66973 [id number] 1 1 1:14 PM CDT DERMATOPATHOLOGY LABORATORY Embedded Images 1:14 PM CDT DERMATOPATHOLOGY LABORATORY Pathology/Cytology TISSUE SPECIMEN FROM SKIN / Unknown 02/08/2018 02/08/2018 11:16 AM CDT Miscellaneous samples (specimen) TISSUE SPECIMEN FROM SKIN / Unknown 02/08/2018 02/08/2018 11:16 AM CDT us Jw Dunaway MD LAB - PATHOLOGY/CYTOLOGY ORD ERABLES Final Result DERMATOPATHOLOGY LABORATORY [facility] - Department of Dermatology [address] [place] [address], 5th Floor Lab B [address] [phone] documented in this encounter Visit Diagnoses Not on filedocumented in this encounter Care Teams Bulk Receiver Relationship Specialty Start Date End Date Joe uMnoz MD [address] [facility] [address] [place] [address] PCP - General 09/04/15 documented as of this encounter
--- OUTSIDE RECORDS SUMMARY | 2025-03-19 00:45 | XMS_ITS | Clinical Summary ---
Author Organization [facility] Address [address] [facility] [place] [address] Care Team Providers Care Account Services Coordinator Name Role Phone Joe Munoz MD Primary Care Provider [phone] Source Comments [facility],non-owned Affiliates and Associated Physician Practices is amultiple site organization consisting of ambulatory clinics and hospital sitesin [place], [place], [place] and [place]. This disclosure is being madepursuant to the Care Everywhere program and may not contain all information available regarding this patient. 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
--- OUTSIDE RECORDS SUMMARY | 2025-03-19 00:45 | XMS_ITS | Clinical Summary ---
Author Organization 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
--- OUTSIDE RECORDS SUMMARY | 2025-03-19 00:45 | XMS_ITS | Clinical Summary ---
Author Organization 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
[2025-03-19] MEDS: VANCOMYCIN 1,250 MG/NS 250 ML 1,250 MG/250 ML BAG 166.67 MG IVPB (06:42)
[2025-03-19] MEDS: LACTATED RINGERS 1,000 ML 30 ML IV CONT ×2 (06:43→10:52)
[2025-03-19] MEDS: ACETAMINOPHEN 500 MG TABLET 1000 MG PO (06:44)
--- NOTE | 2025-03-19 06:44 | P.PNAN_ITS ---
Anes - Initial Pre Proc Eval Procedure: Operation Date: 03/19/25 07:30 Proposed Procedures p Left Total Hip Arthroplasty, Direct Anterior Approach - Ritesh Garcia MD Date/Time: 03/19/25 06:44 Surgeon: Ritesh Garcia MD Pre Op Diagnosis: OA left hip Patient Data Age: 64 Gender: F Height: 1.7 m Weight: 76.6 kg Last Vital Signs Temp 37.0 C 03/02/25 14:19 Pulse 84 03/02/25 14:19 Resp 16 03/02/25 14:19 BP 101/63 03/02/25 14:19 Pulse Ox 95 03/02/25 14:19 O2 Del Method Room Air 03/02/25 14:19 Allergies Allergy/AdvReac Type Severity Reaction Status Date / Time Anesthetics - Amide Type - AdvReac Mild Unknown Verified 03/02/25 14:16 Select A Home Medications ?Medication ?Instructions ?Recorded ?Confirmed ?Type diclofenac potassium 50 mg tablet 50 mg PO BID PRN juju n 02/28/25 03/02/25 H istory ibuprofen 200 mg capsule 400 mg PO Q6H PRN pain 03/0203/02/25 History Patient hx anesthesia problems: none Family hx anesthesia problems: none Results Review: All pre-operative results and documents have been reviewed as part of the pre- operative evaluation. [facility] Past Medical History Medical History Screening mammogram, encounter for History of Hx of colon cancer, stage I Mixed stress and urge urinary incontinence Pure hypercholesterolemia Surgical History Surgical History History of History of breast biopsy (L) breast bx--benign History of laparoscopy History of bowel resection (~2015) Hx of cholecystectomy History of total hip replacement Family History Family History Father Family history of malignant neoplasm of brain Grandparent Cerebrovascular accident maternal grandmother Malignant tumor of pancreas paternal grandfather Mother Hypertension Other Family history of diabetes mellitus in first degree relative Family history of type 1 diabetes mellitus Social History Social History Smoking status: Never smoker Second hand tobacco smoke exposure: No Alcohol intake: former Drinks per week: 1 Substance use: never Substance use type: does not use Lack of Transportation: No Lack of Food: Never True Current Housing: I Have Housing Concerned About Future Housing: No Difficulty Paying Gas/Electric Bills: No Difficulty Paying for Meds: No Currently Unemployed: No Education: Bachelor's Degree Difficulty w/ Childcare or Family Care: No Living arrangements: with family Additional living arrangements comments: [facility] Occupation/Education: 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 Gender identity (if verbalized by the patient): Female Sexual Orientation (if Verbalized by the Patient): Straight or Heterosexual Spiritual care concerns: No Anes - Eval Final PreProcedure Day of Procedure 03/19/25 06:44 Patient weight: overweight Heart: regular rate and rhythm Lungs: clear to auscultation Airway: Mallampati scale class II Neurological: alert and oriented Last oral intake: >/= 8 hours ASA classification: III Emergent: no Anesthetic plan: proceed Anesthesia type and monitoring: general ETT and standard monitoring Results Review: All pre-operative results and documents have been reviewed as part of the pre- operative evaluation. Informed Consent: The patient's anesthetic plan and its attendant risks and benefits were discussed with the patient/family/POA. Questions were solicited and answers provided to the satisfaction of the patient/family/POA.
[2025-03-19] MEDS: TRANEXAMIC ACID 1,000MG/ISO100 1,000 MG/100 ML BAG 200 MG IVPB (06:57)
--- NOTE | 2025-03-19 07:03 | WPDHPUPDATE1 ---
History and Physical Update Update Date/Time: 03/19/25 07:03 History and Physical has been reviewed, including an updated exam of the patient. There are NO changes in the patient's condition. Risks, benefits, and alternatives have been discussed and questions answered. Patient agrees to proceed with procedure.
[2025-03-19] MEDS: ceFAZolin 2 GM in SODIUM CHLORIDE 0.9% IV 50 ML 100 ML IVPB ×3 (07:48→23:06)
[2025-03-19] MEDS: SODIUM CHLORIDE 0.9% IV 37.7 ML, MORPHINE SULFATE INJ (*CRX) 2 MG, ROPivacaine HCL 1% 2... INFILTRATE (08:22)
[2025-03-19] MEDS: KETOROLAC 15 MG/ML VIAL (*BKC) IV PUSH ×3 (10:24→22:58)
[2025-03-19] MEDS: TRANEXAMIC ACID 1,000 MG/10 ML AMPUL 1000 MG IV PUSH (10:24)
--- NOTE | 2025-03-19 11:02 | PM.OP ---
Procedure Note - Brief Procedure Note - Brief Date of procedure: 03/19/25 OA left hip Procedure performed: Left anterior total hip arthroplasty Surgeon: Kyle Matos PA-C Findings: 64-year-old female underwent left anterior total hip arthroplasty on 03/19. I was involved in the procedure including positioning the patient on the OR table and 1st assisting through the time surgery. Total time spent was 3 hours
--- NOTE | 2025-03-19 11:18 | W.PM.PROC2 ---
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 The femur padded and boots applied and the patient transferred to the OSI Josephine table in the left hip prepped draped usual fashion. SCDs were applied the calves and running during the procedure. She received 2 g of Ancef weight based vancomycin 1 g of TXA preoperatively. The the left hip was prepped draped usual fashion. A 10 cm longitudinal incision was made starting 2 cm lateral 1 cm distal to the ASIS. The fascia over the tensor fascia georgi was exposed and longitudinally incised along its midportion elevated off the anterior 50% of the TFL muscle. Interval between TFL and rectus femoris developed. Crossing branches of ascending lateral femoral circumflex vessels were ligated with suture divided. Retractor was placed anteromedial to the capsule. The hip abducted and the gluteus minimus elevated off the lateral capsule. Inverted T capsulotomy was performed. Femoral neck osteotomy performed according to preoperative templating. Femoral head was removed and measured 44 mm in diameter. The acetabulum showed full-thickness cartilage loss along the anterior wall of the acetabulum and 3 cartilaginous loose bodies ranging from 7 to 10 mm. These removed. Labrum excised and residual articular cartilage curetted from the acetabulum. Reaming started with a 40 mm Reamer which was medialized to the medial wall. We reamed up to 46 mm at which point we had reamed to the periphery all the way around and the 46 mm trial was snug. We chose the 46 mm emphasis cup and this was impacted at 40? of abduction and anteversion matching her anatomy. Full seating was achieved with a very tight fit. A single screw placed in the ilium. Thirty-two inner diameter polyethylene liner impacted into the cup. Anterior superior osteophyte removed from the acetabular rim. The The leg was externally rotated extended the elevated with the table hook the which gave us adequate exposure. We did not half to incise interval between conjoined tendon and piriformis. A femur was broached to a size 4 which had excellent torsional stability. This was seated to just below the femoral neck cut intraoperative fluoroscopic images showed that we were about 2 mm higher than our preoperative templating. On trialing with the high offset neck and +1 head Soft tissue tension was very good. I countersunk the broach another 2 mm and this gave us equal leg lengths on the fluoroscopic image matching the preoperative leg length the. Offset was appropriate. Calcar planing was carried out torsional stability the broach confirmed. Soft tissue tension was appropriate. We chose the high offset Actis size 4 stem that was fully seated without complication. No cracks in the calcar. We trialed 1 more time with a +1 x 32 mm head which showed normal soft tissue tension and stability. After thorough irrigation with Ancef solution the 32 mm ceramic head +1 was impacted onto the clean and dried trunnion hip reduced stability reconfirmed. Capsule split was reapproximated with 2. Vicryl suture. Local anesthetic cocktail injected into the periarticular soft tissues. Fascia was closed with running 1. Vicryl. Drain placed deep in the subcu. Skin closed with 2 subcutaneous Vicryl and glue EBL was 150 cc recovered by Cell Saver estimated EBL total 200 cc. No blood was returned from Cell Saver. Two additional g of Ancef given time wound closure 1 g TXA. She was transferred to postop recovery in a stable condition. No known complications. Bone quality was very good we will lower to be weight-bearing as tolerated.
[2025-03-19] MEDS: fentaNYL CITRATE INJ (*CRX) 100 MCG/2 ML VIAL 25 MCG IV PUSH (11:30)
--- NOTE | 2025-03-19 12:20 | P.OP_ITS ---
Procedure Note - Detailed Date of Procedure 03/19/25 Pre-op Diagnosis OA left hip Post-op Diagnosis Same Procedure Performed direct anterior approach left total hip arthroplasty Surgeon Ritesh Garcia MD Hoop Flaring Machine Operator zaiz Anesthesia General Description of Procedure Please see duplicate operative note for description [facility] Billing Surgery - Charge Forward: Surgery Billing (Left total hip replacement)
[2025-03-19] MEDS: ACETAMINOPHEN 325 MG TABLET 650 MG PO ×3 (13:10→20:35)
[2025-03-19] MEDS: SODIUM CHLORIDE 0.9% IV 1,000 ML 125 ML IV CONT (13:11)
[2025-03-19] MEDS: SENNA/DOCUSATE SODIUM TABLET 2 TAB PO (17:18)
[2025-03-19] MEDS: VANCOMYCIN HCL 1,000 MG in SODIUM CHLORIDE 0.9% IV 250 ML 250 MG IVPB (18:08)
[2025-03-19] MEDS: FAMOTIDINE 20 MG TABLET PO (20:35)
[2025-03-20] MEDS: ACETAMINOPHEN 325 MG TABLET 650 MG PO ×3 (00:27→08:13)
[2025-03-20 03:25] VITALS: BP 96/48; PULSE 91; RESP 16; TEMP 36.7; O2SAT 97
[2025-03-20 05:54] VITALS: BP 111/50; PULSE 88; RESP 18; TEMP 36.6; O2SAT 98
[2025-03-20] MEDS: VANCOMYCIN HCL 1,000 MG in SODIUM CHLORIDE 0.9% IV 250 ML 250 MG IVPB (06:12)
--- NOTE | 2025-03-20 06:16 | PC.NURSE ---
50cc of sanguineous drainage emptied from Hemovac, Hemovac removed. Surgical site dry/intact edges approximated. 4x4 Gauze folded in half and placed on incision, Two 1 pieces of tape applied to hold dressing in place. Pt tolerated well, denies any pain or discomfort. Resting in bed at this time, call light within reach.
[2025-03-20 06:17] LABS: Hematocrit 33.7 % (37.0-47.0); Hemoglobin 10.9 g/dL (12.0-15.0); Immature Granulocyte Percent A 0.4 % (0-0.5); Lymphocytes Absolute Auto 1.56 K/mm3 (0.9-3.2); Mean Corpuscular HGB Conc 32.3 g/dl (32-36); Mean Corpuscular Hemoglobin 30.2 pg (26-34); Mean Corpuscular Volume 93.4 fl (80-100); Nucleated Red Blood Cells Absolute Auto 0.000 K/mm3 (0.0-0.012); Nucleated Red Blood Cells Perc 0.0 % (0.0-0.2); Platelet Count Result 204 k/mm3 (150-375); Red Blood Count 3.61 M/mm3 (4.2-5.4); White Blood Count 10.0 K/mm3 (4.5-10.0)
[2025-03-20 06:50] LABS: Anion Gap 0 mmol/L (4-12); Blood Urea Nitrogen 16 mg/dL (7-17); Calcium 8.5 mg/dL (8.4-10.2); Carbon Dioxide 27 mmol/L (22-30); Chloride 110 mmol/L (98-107); Estimated CRCL calculation 69 ml/min; Estimated Glomerular Filt Rate > 60; Glucose 105 mg/dL (65-110); Potassium 4.0 mmol/L (3.4-5.0); Sodium 137 mmol/L (137-145)
[2025-03-20] MEDS: SENNA/DOCUSATE SODIUM TABLET 2 TAB PO (08:13)
[2025-03-20] MEDS: CELECOXIB 200 MG CAPSULE PO (08:13)
[2025-03-20] MEDS: FAMOTIDINE 20 MG TABLET PO (08:13)
[2025-03-20] MEDS: APIXABAN 2.5 MG TABLET PO (08:13)
[2025-03-20] MEDS: ceFAZolin 2 GM in SODIUM CHLORIDE 0.9% IV 50 ML 100 ML IVPB (08:15)
--- NOTE | 2025-03-20 09:40 | P.PNOP_ITS ---
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 She has been very comfortable overnight not having any significant pain. She has not needed any narcotic medication. This morning she walked the halls very well. She is confident that she will do well going home today. Physical therapy worked with her and advised me that she did very well. Physical examination On exam today she is neurologically intact her wound looks fine there is minimal swelling in the proximal right hip and thigh area. She is alert and oriented. Laboratory studies show hemoglobin 10.9 indicating mild acute blood loss anemia and no other significant abnormalities. Reviewed the discharge instructions and medications with her in detail and will discharge her to home today. Subjective Subjective Date/Time Seen: 03/20/25 09:40 Objective Data Vital Signs Vital Signs: Vital Signs - 24 hr 03/19/25 10:52 03/19/25 11:05 03/19/25 11:20 Temperature 36.6 C Pulse Rate 80 91 89 Respiratory Rate 10 L 12 12 Blood Pressure 108/45 L 111/50 L 125/55 L Pulse Oximetry 100 99 100 Oxygen Delivery Simple Face Mask Simple Face Mask Simple Face Mask Oxygen Flow Rate 6 6 6 03/19/25 11:35 03/19/25 11:50 03/19/25 12:05 Temperature Pulse Rate 80 84 87 Respiratory Rate 12 14 16 Blood Pressure 111/51 L 105/68 118/60 Pulse Oximetry 92 96 96 Oxygen Delivery Nasal Cannula Room Air Room Air Oxygen Flow Rate 2 03/19/25 12:45 03/19/25 12:45 03/19/25 12:54 Temperature 36.0 C L 36.0 C L Pulse Rate 95 95 Respiratory Rate 17 17 Blood Pressure 125/60 125/60 Pulse Oximetry 100 100 Oxygen Delivery Room Air Oxygen Flow Rate 03/19/25 13:00 03/19/25 13:30 03/19/25 14:00 Temperature 36.1 C L 36.1 C L 36.2 C L Pulse Rate 94 99 106 H Respiratory Rate 19 19 20 Blood Pressure 111/57 L 131/65 114/54 L Pulse Oximetry 97 100 100 Oxygen Delivery Oxygen Flow Rate 03/19/25 14:09 03/19/25 15:07 03/19/25 20:00 Temperature Pulse Rate Respiratory Rate Blood Pressure Pulse Oximetry Oxygen Delivery Room Air Room Air Room Air Oxygen Flow Rate 03/19/25 21:54 03/20/25 03:25 03/20/25 05:54 Temperature 37.2 C 36.7 C 36.6 C Pulse Rate 91 91 88 Respiratory Rate 20 16 18 Blood Pressure 109/51 L 96/48 L 111/50 L Pulse Oximetry 97 97 98 Oxygen Delivery Oxygen Flow Rate Intake/Output Intake/Output: Intake & Output 03/17/25 03/18/25 03/19/25 03/20/25 23:59 23:59 23:59 23:59 Intake Total 800 500 Output Total 80 Balance 720 500 Meds/Results Medications: Active Medications Generic Name Dose Route Start Last Admin Trade Name Freq PRN Reason Stop Dose Admin Acetaminophen 650 mg 03/19/25 13:00 03/20/25 08:13 Acetaminophen 325 Mg Tablet PO 650 mg Q4H LETICIA Administration Apixaban 2.5 mg 03/20/25 09:00 03/20/25 08:13 Apixaban 2.5 Mg Tablet PO 04/23/25 21:01 2.5 mg Q12HR LETICIA Administration Cefdinir 300 mg 03/20/25 20:00 Cefdinir 300 Mg Capsule PO Q12HR LETICIA Celecoxib 200 mg 03/20/25 09:00 03/20/25 08:13 Celecoxib 200 Mg Capsule PO 200 mg DAILY LETICIA Administration Famotidine 20 mg 03/19/25 21:00 03/20/25 08:13 Famotidine 20 Mg Tablet PO 20 mg Q12HR LETICIA Administration Morphine Sulfate 2 mg 03/19/25 12:09 Morphine Sulfate (*Crx) 4 Mg/Ml Inj IV PUSH Q2H PRN Breakthrough Pain Rated 4-6 or NPO Naloxone HCl 0.1 mg 03/19/25 12:09 Naloxone Hcl 0.4 Mg/Ml Vial IV PUSH Q2M PRN Opiate Reversal Ondansetron HCl 4 mg 03/19/25 12:09 Ondansetron Inj 4 Mg/2 Ml Vial IV PUSH Q4H PRN Nausea And Vomiting Oxycodone HCl 5 mg 03/19/25 13:00 03/20/25 08:14 Oxycodone Hcl (*Crx) 5 Mg Tab Ir PO Not Given Q4HR LETICIA Oxycodone HCl 5 mg 03/19/25 12:09 Oxycodone Hcl (*Crx) 5 Mg Tab Ir PO Q4H PRN Pain Rated 7-10 Polyethylene Glycol 17 gm 03/20/25 09:00 03/20/25 08:14 Polyethylene Glycol 3350 17 Gm Powd.Pack PO 17 gm QAM LETICIA Administration Senna/Docusate Sodium 2 tab 03/19/25 17:00 03/20/25 08:13 Senna/Docusate Sodium Tablet PO 2 tab BID LETICIA Administration Radiology Results: ITS Impressions Intraoperative X-Ray 03/19/25 10:43 IMPRESSION: 1. Fluoroscopy utilized during placement of a left total hip arthroplasty which is in near-anatomic alignment. See procedure note for further detail. Hip/Pelvis X-Ray 03/19/25 10:57 IMPRESSION: 1. As above Labs Labs: Laboratory Results - last 24 hr 03/20/25 05:17 WBC 10.0 RBC 3.61 L Hgb 10.9 L Hct 33.7 L MCV 93.4 MCH 30.2 MCHC 32.3 RDW 12.8 Plt Count 204 MPV 10.6 H Immature Gran % (Auto) 0.4 Neut % (Auto) 72.3 Lymph % (Auto) 15.6 L Jewell % (Auto) 10.5 H Eos % (Auto) 0.4 Baso % (Auto) 0.8 Lymph # (Auto) 1.56 Jewell # (Auto) 1.1 H Eos # (Auto) 0.0 Baso # (Auto) 0.1 Abs Immat Gran (auto) 0.04 H Absolute Neuts (auto) 7.3 H Absolute Nucleated RBC 0.000 Nucleated RBC % 0.0 Sodium 137 Potassium 4.0 Chloride 110 H Carbon Dioxide 27 Anion Gap 0 L BUN 16 D Creatinine 0.70 Estim Creat Clear Calc 69 Estimated GFR > 60 Glucose 105 Calcium 8.5
[2025-03-20 09:54] VITALS: BP 99/66; PULSE 104; RESP 16; TEMP 36.6; O2SAT 96
--- NOTE | 2025-03-20 13:16 | P.PNAN_ITS ---
Anes - Prog Note Post-Op Date/Time: 03/20/25 13:16 Cardiovascular status: normal Respiratory status: normal Airway patency: baseline Mental status: baseline Post-Op hydration status: normal Vital Signs: Last Vital Signs Temp 36.6 C 03/20/25 09:54 Pulse 104 H 03/20/25 09:54 Resp 16 03/20/25 09:54 BP 99/66 L 03/20/25 09:54 Pulse Ox 96 03/20/25 09:54 O2 Del Method Room Air 03/20/25 08:00 O2 Flow Rate 2 03/19/25 11:35 Pain Score (VAS): 2 I/O: Intake & Output 03/19/25 03/20/25 03/20/25 23:59 07:59 15:59 Intake Total 350 500 240 Output Total 80 Balance 270 500 240 Laboratory Tests 03/20/25 05:17 03/20/25 05:17 03/20/25 05:17 WBC 10.0 RBC 3.61 L Hgb 10.9 L Hct 33.7 L MCV 93.4 MCH 30.2 MCHC 32.3 RDW 12.8 Plt Count 204 MPV 10.6 H Immature Gran % (Auto) 0.4 Neut % (Auto) 72.3 Lymph % (Auto) 15.6 L Mower % (Auto) 10.5 H Eos % (Auto) 0.4 Baso % (Auto) 0.8 Lymph # (Auto) 1.56 Mower # (Auto) 1.1 H Eos # (Auto) 0.0 Baso # (Auto) 0.1 Abs Immat Gran (auto) 0.04 H Absolute Neuts (auto) 7.3 H Absolute Nucleated RBC 0.000 Nucleated RBC % 0.0 Sodium 137 Potassium 4.0 Chloride 110 H Carbon Dioxide 27 Anion Gap 0 L BUN 16 D Creatinine 0.70 Estim Creat Clear Calc 69 Estimated GFR > 60 Glucose 105 Calcium 8.5 Post-procedural complaints: none Patient Feedback: Patient satisfied with anesthetic care.
== END 2025-03-20 10:35 | disposition home or self-care (01) ==
LOC: ANHSURGERY 06:01 → ANH3MEDSUR 12:11
PROVIDERS: Physician Assistant Surgical; PCP Family Medicine; Visit Provider Orthopaedic Surgery
PROC: (CPT 27130; principal; 2025-03-19 07:30)
DX: M16.32 Unilateral osteoarthritis resulting from hip dysplasia, left hip (principal); M25.752 Osteophyte, left hip; N39.46 Mixed incontinence; E78.00 Pure hypercholesterolemia, unspecified; Z79.1 Long term (current) use of non-steroidal anti-inflammatories (NSAID); Z98.890 Other specified postprocedural states; Z90.49 Acquired absence of other specified parts of digestive tract; Z85.038 Personal history of other malignant neoplasm of large intestine; Z80.8 Family history of malignant neoplasm of other organs or systems; Z80.0 Family history of malignant neoplasm of digestive organs
CPT/HCPCS: 27130; 36415; 73501; 80048; 85025; 86850; 86900; 86901; 97110; 97116; 97161; 97166; 97530; 97535; 99199; J0690; A9270; C1776; J0166; J1100; J1171; J1200; J1885; J2250; J2270; J2371; J2405; J2704; J2795; J3010; J3290; J3373; J7030; J7050; J7120